=== PATIENT | female | born 1985 | race Caucasian/White ===

== ENCOUNTER → 2016-08-06 | Outpatient (CLI) | payer BC ==
--- NOTE | 2016-08-06 23:42 | PN ---
This 31-year-old female is coming in to discuss results of the sleep study. As mentioned earlier, the patient was diagnosed having obstructive sleep apnea which is moderate to severe with ( ) body position. Ideally would recommend CPAP therapy for this patient; however, she seems to be interested in weight loss and she has been aggressive in losing weight. She is currently down to 224 pounds. She was noted also to have significant tonsillar enlargement, and she is very interested in obtaining an ENT evaluation to see if she would be a good candidate for tonsillectomy, which would potentially improve her airway patency and decrease the severity of her obstructive sleep apnea. I think that is a reasonable option as long as the patient is not having any major symptoms regarding her obstructive sleep apnea. She is still snoring and she does have some degree of fatigue and sleepiness. Her [place] score is at 13 for now. HER CURRENT VITAL SIGNS: BP is 130/78, pulse 80, respiratory rate 16, temperature 98.4, saturation 97% on room air. Weight is 224. GENERAL APPEARANCE: Calm, comfortable. HEENT: Bilateral tonsillar enlargement. No goiter or neck masses. LUNGS: Clear to auscultation. HEART: Sounds are regular rate and rhythm. Normal S1, S2. No S3. No S4. No murmurs. ABDOMEN: Soft, nontender. No organomegaly. EXTREMITIES: No clubbing. No cyanosis or clubbing. IMPRESSION: 1. Obstructive sleep apnea, symptomatic, AHI of 24. 2. Bilateral tonsillar enlargement. 3. Obesity with a body mass index of 36, improving weight, as the patient has been aggressively losing weight. 4. Attention deficit disorder. 5. Chronic anxiety/depression. 6. Family history of obstructive sleep apnea. PLAN: 1. ENT evaluation regarding tonsillectomy. 2. Encourage weight loss. 3. CPAP therapy if the above-mentioned interventions fail. 4. The patient was referred to Dr. Stauffer in regards to possible tonsillectomy.
== END | disposition home or self-care (01) ==
LOC: SLEEP 14:13
PROVIDERS: ATTEND Internal Medicine Critical Care Medicine
DX: G47.33 Obstructive sleep apnea (adult) (pediatric) (principal); J35.1 Hypertrophy of tonsils; E66.9 Obesity, unspecified; Z68.36 Body mass index [BMI] 36.0-36.9, adult

== ENCOUNTER 2018-01-02 11:47 | Emergency (ER) | payer BC ==
--- NOTE | 2018-01-02 12:42 | ED ---
Abdominal Pain HPI - General Chief Complaint: Abdominal Pain Stated Complaint: Abd.pain Time Seen by Provider: 01/02/18 12:26 Source: patient, RN notes reviewed Mode of arrival: ambulatory Limitations: no limitations - History of Present Illness Initial Comments: This is a 32-year-old female with history of PCOS who presents to the emergency department with chief complaint of low abdominal pain. Patient states that she developed a pressure-like lower abdominal pain on Friday. She states that the right side of her abdomen is no longer painful but she continues to experience pain on the left side. Patient states that she is trying to get so does not take any control for management of her PCOS. She states that she has had ovarian cysts "pop" in the past and feels as if the pain is related to these cysts. Patient also reports bilateral low back pain. She states she has had kidney stones in the past but that this does not feel like a kidney stone. Patient states that she has irregular periods, her last being on November 09. She states she did take an at-home test which was negative. Patient has been one time in the past and did have a miscarriage. Patient reports nausea but denies vomiting, diarrhea or constipation. Denies fevers or chills, chest pain or shortness of breath. Denies vaginal bleeding or abnormal discharge. Patient denies any other past medical history and states she only takes Zoloft for anxiety and depression. - Related Data Allergies Allergy/AdvReac Type Severity Reaction Status Date / Time sulfamethoxazole Allergy Itching Verified 01/02/18 12:08 [From Bactrim] trimethoprim [From Bactrim] Allergy Itching Verified 01/02/18 12:08 Review of Systems ROS Statement: Those systems with pertinent positive or pertinent negative responses have been documented in the HPI. ROS Other: All systems not noted in ROS Statement are negative. Past Medical History Additional Past Medical History / Comment(s): pcos History of Any Multi-Drug Resistant Organisms: None Reported Past Surgical History: No Surgical Hx Reported Past Psychological History: Anxiety, Depression Smoking Status: Never smoker Past Alcohol Use History: Rare Past Drug Use History: None Reported General Exam - General Exam Comments Initial Comments: General: Awake and alert, well-developed; in no apparent distress. Patient is lying comfortably on ED stretcher. HEENT: Head atraumatic, normocephalic. Pupils are equal, round and reactive to light. Extraocular movements intact. Oropharynx moist without erythema or exudate. Neck: Supple. Normal ROM. Cardiovascular: Regular rate and rhythm. No murmurs, rubs or gallops. Chest symmetrical. Respiratory: Lungs clear to auscultation bilaterally. No wheezes, rales or rhonchi. Normal respiratory effort with no use of accessory muscles. Abdomen: Soft, non-distended. No rigidity, rebound, or guarding. There is tenderness on palpation of left lower pelvic region. With palpation of the left lower quadrant, patient complains of pain to the left pelvic region. No CVA tenderness bilaterally. Musculoskeletal: Normal ROM, no tenderness bilateral upper and lower extremities. Ambulating normally. Skin: [place], warm and dry without rashes or lesions. Neurological: Alert and oriented x3. CN II-XII grossly intact. Speech is fluent and answers are appropriate. No focal neuro deficits. Psychiatric: Normal mood and affect. No overt signs of depression or anxiety noted. Limitations: no limitations Course Vital Signs 01/02/18 01/02/18 01/02/18 12:05 12:20 14:08 Temperature 98.8 F 98.3 F Pulse Rate 94 82 Respiratory 18 18 16 Rate Blood Pressure 126/83 112/55 O2 Sat by Pulse 99 97 Oximetry Medical Decision Making - Medical Decision Making This is a 32-year-old female who presents to the emergency department with chief complaint of abdominal pain. Patient reports abdominal pain that started on Friday across the entire lower abdomen. Patient states that the right- sided abdominal pain has dissipated but that she continues to have pain in the left lower abdomen. On physical examination, patient is healthy appearing and in no acute distress. There is tenderness on palpation of left pelvic region. Patient does report a history of PCOS and states that she has had frequent ovarian cysts and that this feels very similar. Patient is managed by Dr. Ramos , [employer]. She is trying to get so does not take any control for management of PCOS. urine hCG is negative. CBC, CMP and UA were essentially unremarkable. Ultrasound of the pelvis revealed a thickened endometrium with small amount of fluid collection within the cervical canal radiologist believes this could relate to a pseudo-gestational sac of ectopic although no current ectopic was identified. A right ovarian cyst that is likely physiologic was also identified but could also be related to an early ectopic or a corpus luteal cyst. Recommended correlating with a serum beta hCG levels. Serum beta-hcg is <2.4 indicating no . Ultrasound also revealed a small amount of left paraovarian free fluid and a dominant follicle. This is likely what is causing patient's left lower quadrant pain, likely from a ruptured ovarian cyst. Patient's vital signs have been stable and she is in no acute distress. Recommended follow up with Dr. Ramos, patient's [employer] for repeat U/S in 5-7 days. Patient is agreement with plan and voices understanding. All questions answered. - Lab Data Result diagrams: 01/02/18 13:05 01/02/18 13:05 Lab Results 01/02/18 01/02/18 01/02/18 Range/Units 13:00 13:00 13:05 WBC (3.8-10.6) k/uL RBC (3.80-5.40) m/uL Hgb (11.4-16.0) gm/dL Hct (34.0-46.0) % MCV (80.0-100.0) fL MCH (25.0-35.0) pg MCHC (31.0-37.0) g/dL RDW (11.5-15.5) % Plt Count (150-450) k/uL Neutrophils % % Lymphocytes % % Monocytes % % Eosinophils % % Basophils % % Neutrophils # (1.3-7.7) k/uL Lymphocytes # (1.0-4.8) k/uL Monocytes # (0-1.0) k/uL Eosinophils # (0-0.7) k/uL Basophils # (0-0.2) k/uL Sodium 142 (137-145) mmol/L Potassium 4.4 (3.5-5.1) mmol/L Chloride 105 (98-107) mmol/L Carbon Dioxide 26 (22-30) mmol/L Anion Gap 11 mmol/L BUN 9 (7-17) mg/dL Creatinine 0.70 (0.52-1.04) mg/dL Est GFR (CKD-EPI)AfAm >90 (>60 ml/min/1.73 sqM) Est GFR (CKD-EPI)NonAf >90 (>60 ml/min/1.73 sqM) Glucose 93 (74-99) mg/dL Calcium 9.4 (8.4-10.2) mg/dL Total Bilirubin 0.7 (0.2-1.3) mg/dL AST 25 (14-36) U/L ALT 32 (9-52) U/L Alkaline Phosphatase 68 (38-126) U/L Total Protein 7.3 (6.3-8.2) g/dL Albumin 4.4 (3.5-5.0) g/dL Amylase 46 (30-110) U/L Lipase 95 (23-300) U/L HCG, Quant mIU/mL Urine Color Yellow Urine Appearance Cloudy H (Clear) Urine pH 5.5 (5.0-8.0) Ur Specific [place] 1.022 (1.001-1.035) Urine Protein Trace H (Negative) Urine Glucose (UA) Negative (Negative) Urine Ketones Negative (Negative) Urine Blood Negative (Negative) Urine Nitrite Negative (Negative) Urine Bilirubin Negative (Negative) Urine Urobilinogen <2.0 (<2.0) mg/dL Ur Leukocyte Esterase Trace H (Negative) Urine RBC 2 (0-5) /hpf Urine WBC 5 (0-5) /hpf Ur Squamous Epith Cells 5 H (0-4) /hpf Urine Bacteria Rare H (None) /hpf Urine Mucus Few H (None) /hpf Urine HCG, Qual Not Detected (Not Detectd) 01/02/18 01/02/18 Range/Units 13:05 13:05 WBC 10.9 H (3.8-10.6) k/uL RBC 5.52 H (3.80-5.40) m/uL Hgb 13.2 (11.4-16.0) gm/dL Hct 41.6 (34.0-46.0) % MCV 75.4 L (80.0-100.0) fL MCH 23.9 L (25.0-35.0) pg MCHC 31.7 (31.0-37.0) g/dL RDW 13.3 (11.5-15.5) % Plt Count 324 (150-450) k/uL Neutrophils % 73 % Lymphocytes % 18 % Monocytes % 7 % Eosinophils % 2 % Basophils % 0 % Neutrophils # 7.9 H (1.3-7.7) k/uL Lymphocytes # 1.9 (1.0-4.8) k/uL Monocytes # 0.8 (0-1.0) k/uL Eosinophils # 0.2 (0-0.7) k/uL Basophils # 0.0 (0-0.2) k/uL Sodium (137-145) mmol/L Potassium (3.5-5.1) mmol/L Chloride (98-107) mmol/L Carbon Dioxide (22-30) mmol/L Anion Gap mmol/L BUN (7-17) mg/dL Creatinine (0.52-1.04) mg/dL Est GFR (CKD-EPI)AfAm (>60 ml/min/1.73 sqM) Est GFR (CKD-EPI)NonAf (>60 ml/min/1.73 sqM) Glucose (74-99) mg/dL Calcium (8.4-10.2) mg/dL Total Bilirubin (0.2-1.3) mg/dL AST (14-36) U/L ALT (9-52) U/L Alkaline Phosphatase (38-126) U/L Total Protein (6.3-8.2) g/dL Albumin (3.5-5.0) g/dL Amylase (30-110) U/L Lipase (23-300) U/L HCG, Quant <2.4 mIU/mL Urine Color Urine Appearance (Clear) Urine pH (5.0-8.0) Ur Specific [place] (1.001-1.035) Urine Protein (Negative) Urine Glucose (UA) (Negative) Urine Ketones (Negative) Urine Blood (Negative) Urine Nitrite (Negative) Urine Bilirubin (Negative) Urine Urobilinogen (<2.0) mg/dL Ur Leukocyte Esterase (Negative) Urine RBC (0-5) /hpf Urine WBC (0-5) /hpf Ur Squamous Epith Cells (0-4) /hpf Urine Bacteria (None) /hpf Urine Mucus (None) /hpf Urine HCG, Qual (Not Detectd) - Radiology Data Radiology results: report reviewed transvaginal ultrasound impression: 1. Finding should be correlated with serum beta hCG level. There is a thickened endometrium with small intramural endometrial fluid collections and fluid within the cervical canal. Findings could relate to pseuodgestational sac of ectopic although no current ectopic sonographically identified, spontaneous , or less likely early intrauterine . 2. Small amount of left paraovarian free fluid and dominant follicle. 3. 2.3 similar right ovarian cyst that could be physiologic, related to early ectopic , represent a corpus luteal cyst. Again correlation with serum beta hCG levels recommended. Additionally short-term follow-up pelvic ultrasound in 5-7 days is recommended. Disposition Clinical Impression: Ovarian cyst Disposition: HOME SELF-CARE Condition: Good Instructions: Ovarian Cyst (ED), Ruptured Ovarian Cyst (ED) Additional Instructions: Please follow up with your [employer] within 1-2 days. Recommend repeat pelvic ultrasound in 5-7 days. Please return to the ED if you develop new or worsening symptoms. Is patient prescribed a controlled substance at d/c from ED?: No Referrals: Allan Wills MD [Primary Care Provider] - 1-2 days Time of Disposition: 15:14
[2018-01-02 13:22] LABS: Appearance,Urine Cloudy (Clear); Bacteria,Urine Rare /hpf; Bilirubin,Urine Negative (Negative); Blood,Urine Negative (Negative); Color,Urine Yellow; Glucose,Urine (UA) Negative (Negative); Ketones,Urine Negative (Negative); Leukocyte Esterase,Urine Trace (Negative); Mucus,Urine Few /hpf; Nitrite,Urine Negative (Negative); PH, Urine 5.5 (5.0-8.0); Protein,Urine Trace (Negative); RBC,Urine 2 /hpf (0-5); Specific Gravity,Urine 1.022 (1.001-1.035); Squamous Epithelial Cell,Urine 5 /hpf (0-4); Urobilinogen,Urine <2.0 mg/dL (<2.0); WBC,Urine 5 /hpf (0-5)
[2018-01-02 13:28] LABS: ALT 32 U/L (9-52); AST 25 U/L (14-36); Albumin 4.4 g/dL (3.5-5.0); Alkaline Phosphatase 68 U/L (38-126); Amylase 46 U/L (30-110); Anion Gap 11 mmol/L; Blood Urea Nitrogen 9 mg/dL (7-17); Calcium 9.4 mg/dL (8.4-10.2); Carbon Dioxide 26 mmol/L (22-30); Chloride 105 mmol/L (98-107); Glucose 93 mg/dL (74-99); Lipase 95 U/L (23-300); Potassium 4.4 mmol/L (3.5-5.1); Sodium 142 mmol/L (137-145); Total Bilirubin 0.7 mg/dL (0.2-1.3); Total Protein 7.3 g/dL (6.3-8.2)
[2018-01-02 13:30] LABS: Basophils % (A) 0 %; Eosinophils # (A) 0.2 k/uL (0-0.7); Eosinophils % (A) 2 %; HCT 41.6 % (34.0-46.0); HGB 13.2 gm/dL (11.4-16.0); Lymphocytes # (A) 1.9 k/uL (1.0-4.8); Lymphocytes % (A) 18 %; MCH 23.9 pg (25.0-35.0); MCHC 31.7 g/dL (31.0-37.0); MCV 75.4 fL (80.0-100.0); Mean Platelet Volume 7.2; Monocytes # (A) 0.8 k/uL (0-1.0); Monocytes % (A) 7 %; Neutrophils # (A) 7.9 k/uL (1.3-7.7); Neutrophils % (A) 73 %; Platelet Count 324 k/uL (150-450); RBC 5.52 m/uL (3.80-5.40); RDW 13.3 % (11.5-15.5); WBC 10.9 k/uL (3.8-10.6)
--- NOTE | 2018-01-02 14:07 | US ---
EXAMINATION TYPE: US transvaginal DATE OF EXAM: 01/02/2018 COMPARISON: NONE CLINICAL HISTORY: llq abdominal/pelvic pain. Pelvic pain and LLQ pain x 3 days; D/C Clomid beginning of October and was taking it x 3 months; ; patient stated has PCOS TECHNIQUE: Transvaginal (TV) per EC physician Date of LMP: 11/09/2017 EXAM MEASUREMENTS: Uterus: 9.3 x 5.6 x 3.9 cm Endometrial Stripe: 1.9 cm Right Ovary: 4.1 x 3.0 x 2.5 cm Left Ovary: 3.0 x 2.7 x 2.1 cm 1. Uterus: Anteverted; small amount of fluid in cervical canal = 1.8 x 0.7 x 0.1cm; Nabothian cysts in LULA = 1.8 x 0.7 x 0.1cm 2. Endometrium: abnormally thickened as >1.4cm and unable to correlate with 11/09/17 LMP; 2 cystic a djacent areas seen in upper endometrium with larger cyst = 0.4 x 0.5 x 0.3cm 3. Right Ovary: multifollicular with largest as thick walled cyst = 2.3 x 1.8 x 1.7cm 4. Left Ovary: multifollicular with largest simple follicular cyst = 1.6 x 1.1 x 1.3cm. Spectral, color and waveform Doppler imaging shows good arterial and venous flow within the ovaries ; there is no evidence for ovarian torsion. 5. Bilateral Adnexa: small free fluid noted adjacent to left ovary = 1.3 x 1.2 x 0.8cm 6. Posterior cul-de-sac: wnl IMPRESSION: 1. Findings should be correlated with serum beta-hCG level. There is a thickened endometrium with sma ll intramural endometrial fluid collections and fluid within the cervical canal. Findings could relat e to pseudogestational sac of ectopic although no current ectopic sonographically identified, spontaneous , or less likely early intrauterine . 2. Small amount of left paraovarian free fluid and dominant follicle. 3. 2.3 similar right ovarian cyst that could be physiologic, related to early ectopic , or r epresent a corpus luteal cyst. Again correlation with serum beta hCG levels recommended. Additionally short-term follow-up pelvic ultrasound in 5-7 days is recommended.
[2018-01-02 14:08] VITALS: RESP 16
[2018-01-02 16:10] VITALS: BP 121/82; PULSE 78; TEMP 98
== END 2018-01-02 16:05 | disposition home or self-care (01) ==
LOC: EC 11:47
DX: N83.201 Unspecified ovarian cyst, right side (principal); R93.8 Abnormal findings on diagnostic imaging of other specified body structures; N92.6 Irregular menstruation, unspecified; M54.5 Low back pain; R11.0 Nausea; F32.9 Major depressive disorder, single episode, unspecified; F41.9 Anxiety disorder, unspecified; Z79.899 Other long term (current) drug therapy; Z88.1 Allergy status to other antibiotic agents
CPT/HCPCS: 36415; 76830; 80053; 81001; 81025; 82150; 83690; 84702; 85025; 93975; 99284

== ENCOUNTER 2018-12-27 04:17 | Emergency (ER) | payer BC ==
[2018-12-27 04:28] VITALS: TEMP 97.9
[2018-12-27] MEDS ORDERED: ONDANSETRON 4 MG/2 ML VIAL IVP STA (04:48)
[2018-12-27] MEDS ORDERED: SODIUM CHLORIDE 0.9% 500 ML 500 ML IV STA (04:48)
[2018-12-27] MEDS ORDERED: MORPHINE SULFATE 4 MG/ML SYRINGE IV STA (04:48)
[2018-12-27] MEDS ORDERED: KETOROLAC 30 MG/ML 1 ML VIAL IVP STA (04:48)
[2018-12-27] MEDS ORDERED: SODIUM CHLORIDE 0.9% 1,000 ML IV STA ×2 (04:48)
--- NOTE | 2018-12-27 04:48 | ED ---
Abdominal Pain HPI - General Chief Complaint: Abdominal Pain Stated Complaint: Flank pain Time Seen by Provider: 12/27/18 04:19 Source: patient, family, RN notes reviewed, old records reviewed Mode of arrival: ambulatory Limitations: no limitations - History of Present Illness Initial Comments: This is a 31-year-old female the ER for evaluation. Patient presented for left- sided flank pain rating to back radiating to groin. Severe. Difficulty putting her urination. Patient states he has history of kidney stones history of arthritis feels different. No other injuries no trauma. No current fevers. Mild nausea no vomiting. No other medical history takes no medications denies drugs or alcohol MD Complaint: flank pain (Left-sided) -: days(s) (3) Location: suprapubic, L flank Radiation: LLQ, suprapubic Migration to: suprapubic Severity: moderate Severity scale (1-10): 7 Quality: aching, sharp Consistency: intermittent Improves With: nothing Worsens With: nothing Associated Symptoms: nausea - Related Data Previous Rx's Medication Instructions Recorded Naproxen [Naprosyn] 500 mg PO Q12HR PRN #30 tab 12/27/18 Ondansetron Odt [Zofran ODT] 4 mg PO Q8HR PRN #10 tab 12/27/18 Allergies Allergy/AdvReac Type Severity Reaction Status Date / Time sulfamethoxazole Allergy Itching Verified 12/27/18 04:28 [From Bactrim] trimethoprim [From Bactrim] Allergy Itching Verified 12/27/18 04:28 Review of Systems ROS Statement: Those systems with pertinent positive or pertinent negative responses have been documented in the HPI. ROS Other: All systems not noted in ROS Statement are negative. Past Medical History Additional Past Medical History / Comment(s): pcos, kidney stones History of Any Multi-Drug Resistant Organisms: None Reported Past Surgical History: Tonsillectomy Past Psychological History: Anxiety, Depression Smoking Status: Never smoker Past Alcohol Use History: Rare Past Drug Use History: None Reported General Exam Limitations: no limitations General appearance: alert, in no apparent distress Head exam: Present: atraumatic, normocephalic, normal inspection Eye exam: Present: normal appearance, PERRL, EOMI. Absent: scleral icterus, conjunctival injection, periorbital swelling ENT exam: Present: normal exam, mucous membranes moist Neck exam: Present: normal inspection. Absent: tenderness, meningismus, lym phadenopathy Respiratory exam: Present: normal lung sounds bilaterally. Absent: respiratory distress, wheezes, rales, rhonchi, stridor Cardiovascular Exam: Present: regular rate, normal rhythm, normal heart sounds. Absent: systolic murmur, diastolic murmur, rubs, gallop, clicks GI/Abdominal exam: Present: soft, normal bowel sounds, other (Left flank pain, no abdominal tenderness). Absent: distended, tenderness, guarding, rebound, rigid Extremities exam: Present: normal inspection, full ROM, normal capillary refill. Absent: tenderness, pedal edema, joint swelling, calf tenderness Back exam: Present: normal inspection Neurological exam: Present: alert, oriented X3, CN II-XII intact Psychiatric exam: Present: normal affect, normal mood Skin exam: Present: warm, dry, intact, normal color. Absent: rash Course Vital Signs 12/27/18 12/27/18 04:26 07:35 Temperature 97.9 F Pulse Rate 94 78 Respiratory 16 18 Rate Blood Pressure 130/87 156/99 O2 Sat by Pulse 98 98 Oximetry Medical Decision Making - Medical Decision Making 31 female the ER for evaluation. Patient has a left flank pain positive kidney stone noted. No infection labwork is normal patient can be discharged home - Lab Data Result diagrams: 12/27/18 05:05 12/27/18 05:05 Lab Results 12/27/18 12/27/18 12/27/18 Range/Units 05:05 05:05 05:05 WBC 10.6 (3.8-10.6) k/uL RBC 5.33 (3.80-5.40) m/uL Hgb 13.8 (11.4-16.0) gm/dL Hct 41.5 (34.0-46.0) % MCV 77.9 L (80.0-100.0) fL MCH 25.9 (25.0-35.0) pg MCHC 33.2 (31.0-37.0) g/dL RDW 15.7 H (11.5-15.5) % Plt Count 345 (150-450) k/uL Neutrophils % 74 % Lymphocytes % 18 % Monocytes % 6 % Eosinophils % 1 % Basophils % 0 % Neutrophils # 7.8 H (1.3-7.7) k/uL Lymphocytes # 1.9 (1.0-4.8) k/uL Monocytes # 0.6 (0-1.0) k/uL Eosinophils # 0.2 (0-0.7) k/uL Basophils # 0.0 (0-0.2) k/uL Sodium 140 (137-145) mmol/L Potassium 4.1 (3.5-5.1) mmol/L Chloride 105 (98-107) mmol/L Carbon Dioxide 22 (22-30) mmol/L Anion Gap 13 mmol/L BUN 14 (7-17) mg/dL Creatinine 1.06 H (0.52-1.04) mg/dL Est GFR (CKD-EPI)AfAm 81 (>60 ml/min/1.73 sqM) Est GFR (CKD-EPI)NonAf 70 (>60 ml/min/1.73 sqM) Glucose 112 H (74-99) mg/dL Lactic Ac Sepsis Rflx Plasma Lactic Acid [place] 2.6 H* (0.7-2.0) mmol/L Calcium 9.5 (8.4-10.2) mg/dL Total Bilirubin 0.4 (0.2-1.3) mg/dL AST 25 (14-36) U/L ALT 32 (9-52) U/L Alkaline Phosphatase 102 (38-126) U/L Creatine Kinase 81 (30-135) U/L Total Protein 7.0 (6.3-8.2) g/dL Albumin 4.2 (3.5-5.0) g/dL Amylase 70 (30-110) U/L Lipase 166 (23-300) U/L Urine Color Urine Appearance (Clear) Urine pH (5.0-8.0) Ur Specific [place] (1.001-1.035) Urine Protein (Negative) Urine Glucose (UA) (Negative) Urine Ketones (Negative) Urine Blood (Negative) Urine Nitrite (Negative) Urine Bilirubin (Negative) Urine Urobilinogen (<2.0) mg/dL Ur Leukocyte Esterase (Negative) Urine RBC (0-5) /hpf Urine WBC (0-5) /hpf Ur Squamous Epith Cells (0-4) /hpf Amorphous Sediment (None) /hpf Urine Bacteria (None) /hpf Urine Mucus (None) /hpf Urine HCG, Qual (Not Detectd) 12/27/18 12/27/18 12/27/18 Range/Units 05:40 05:40 06:32 WBC (3.8-10.6) k/uL RBC (3.80-5.40) m/uL Hgb (11.4-16.0) gm/dL Hct (34.0-46.0) % MCV (80.0-100.0) fL MCH (25.0-35.0) pg MCHC (31.0-37.0) g/dL RDW (11.5-15.5) % Plt Count (150-450) k/uL Neutrophils % % Lymphocytes % % Monocytes % % Eosinophils % % Basophils % % Neutrophils # (1.3-7.7) k/uL Lymphocytes # (1.0-4.8) k/uL Monocytes # (0-1.0) k/uL Eosinophils # (0-0.7) k/uL Basophils # (0-0.2) k/uL Sodium (137-145) mmol/L Potassium (3.5-5.1) mmol/L Chloride (98-107) mmol/L Carbon Dioxide (22-30) mmol/L Anion Gap mmol/L BUN (7-17) mg/dL Creatinine (0.52-1.04) mg/dL Est GFR (CKD-EPI)AfAm (>60 ml/min/1.73 sqM) Est GFR (CKD-EPI)NonAf (>60 ml/min/1.73 sqM) Glucose (74-99) mg/dL Lactic Ac Sepsis Rflx Y Plasma Lactic Acid [place] (0.7-2.0) mmol/L Calcium (8.4-10.2) mg/dL Total Bilirubin (0.2-1.3) mg/dL AST (14-36) U/L ALT (9-52) U/L Alkaline Phosphatase (38-126) U/L Creatine Kinase (30-135) U/L Total Protein (6.3-8.2) g/dL Albumin (3.5-5.0) g/dL Amylase (30-110) U/L Lipase (23-300) U/L Urine Color Yellow Urine Appearance Cloudy H (Clear) Urine pH 7.0 (5.0-8.0) Ur Specific [place] 1.016 (1.001-1.035) Urine Protein Trace H (Negative) Urine Glucose (UA) Negative (Negative) Urine Ketones Negative (Negative) Urine Blood Large H (Negative) Urine Nitrite Negative (Negative) Urine Bilirubin Negative (Negative) Urine Urobilinogen <2.0 (<2.0) mg/dL Ur Leukocyte Esterase Negative (Negative) Urine RBC >182 H (0-5) /hpf Urine WBC 5 (0-5) /hpf Ur Squamous Epith Cells 4 (0-4) /hpf Amorphous Sediment Moderate H (None) /hpf Urine Bacteria Rare H (None) /hpf Urine Mucus Rare H (None) /hpf Urine HCG, Qual Not Detected (Not Detectd) - Radiology Data Radiology results: report reviewed (CT pelvis is positive for left-sided kidney stone), image reviewed Disposition Clinical Impression: Kidney stone on left side Disposition: HOME SELF-CARE Condition: Good Instructions (If sedation given, give patient instructions): Kidney Stones (ED) Prescriptions: Naproxen [Naprosyn] 500 mg PO Q12HR PRN #30 tab PRN Reason: Pain Ondansetron Odt [Zofran ODT] 4 mg PO Q8HR PRN #10 tab PRN Reason: nausea/vomiting Is patient prescribed a controlled substance at d/c from ED?: No Referrals: Allan Wills MD [Primary Care Provider] - 1-2 days
[2018-12-27 05:43] LABS: Basophils % (A) 0 %; Eosinophils # (A) 0.2 k/uL (0-0.7); Eosinophils % (A) 1 %; HCT 41.5 % (34.0-46.0); HGB 13.8 gm/dL (11.4-16.0); Lymphocytes # (A) 1.9 k/uL (1.0-4.8); Lymphocytes % (A) 18 %; MCH 25.9 pg (25.0-35.0); MCHC 33.2 g/dL (31.0-37.0); MCV 77.9 fL (80.0-100.0); Mean Platelet Volume 7.2; Monocytes # (A) 0.6 k/uL (0-1.0); Monocytes % (A) 6 %; Neutrophils # (A) 7.8 k/uL (1.3-7.7); Neutrophils % (A) 74 %; Platelet Count 345 k/uL (150-450); RBC 5.33 m/uL (3.80-5.40); RDW 15.7 % (11.5-15.5); WBC 10.6 k/uL (3.8-10.6)
[2018-12-27 05:44] LABS: Albumin 4.2 g/dL (3.5-5.0); Calcium 9.5 mg/dL (8.4-10.2); Potassium 4.1 mmol/L (3.5-5.1); Total Bilirubin 0.4 mg/dL (0.2-1.3)
[2018-12-27 06:36] LABS: Amorphous Sediment,Urine Moderate /hpf; Appearance,Urine Cloudy (Clear); Bacteria,Urine Rare /hpf; Bilirubin,Urine Negative (Negative); Blood,Urine Large (Negative); Color,Urine Yellow; Glucose,Urine (UA) Negative (Negative); Ketones,Urine Negative (Negative); Leukocyte Esterase,Urine Negative (Negative); Mucus,Urine Rare /hpf; Nitrite,Urine Negative (Negative); Protein,Urine Trace (Negative); RBC,Urine >182 /hpf (0-5); Specific Gravity,Urine 1.016 (1.001-1.035); Squamous Epithelial Cell,Urine 4 /hpf (0-4); Urobilinogen,Urine <2.0 mg/dL (<2.0); WBC,Urine 5 /hpf (0-5)
[2018-12-27] MEDS ORDERED: ACET/COD 300 MG/30 MG STARTER PACK 6 TAB BTL PO STA (06:45)
--- NOTE | 2018-12-27 06:46 | CT ---
EXAM: CT Abdomen and Pelvis With Intravenous Contrast CLINICAL HISTORY: ITS.REASON CT Reason: abdominal pain TECHNIQUE: Axial computed tomography images of the abdomen and pelvis with intravenous contrast. CTDI is 37 mGy and DLP is 1787 mGy-cm. This CT exam was performed using one or more of the following dose reduction techniques: automated exposure control, adjustment of the mA and/or kV according to patient size, and/or use of iterative reconstruction technique. COMPARISON: No relevant prior studies available. FINDINGS: Lung bases: No mass. No consolidation. ABDOMEN: Liver: Enlarged with steatosis. Gallbladder and bile ducts: Unremarkable. Pancreas: Unremarkable. Spleen: Unremarkable. Adrenals: Unremarkable. Kidneys and ureters: Normal right kidney. Left hydroureteronephrosis secondary to a 3 mm stone in the mid ureter. Stomach and bowel: No bowel obstruction. No bowel wall thickening. PELVIS: Appendix: No appendicitis. Bladder: Unremarkable. Reproductive: Unremarkable. ABDOMEN and PELVIS: Intraperitoneal space: Unremarkable. Bones/joints: No acute fractures. Soft tissues: Unremarkable. Vasculature: No abdominal aortic aneurysm. Lymph nodes: No enlarged lymph nodes. IMPRESSION: Left hydroureteronephrosis secondary to a 3 mm stone in the mid ureter. Hepatomegaly with steatosis.
[2018-12-27 07:37] VITALS: BP 156/99; PULSE 78; RESP 18
== END 2018-12-27 07:35 | disposition home or self-care (01) ==
LOC: EC 04:17
DX: N20.0 Calculus of kidney (principal); Z88.2 Allergy status to sulfonamides; Z87.442 Personal history of urinary calculi
CPT/HCPCS: 99284; 96374; 96375 ×2; 96361; 36415; 80053; 82150; 82550; 83605; 83690; 85025; 81001; 81025; 87086; 74177; J2270; J2405; J1885; Q9967

== ENCOUNTER 2019-12-21 21:56 | Emergency (ER) | payer BC ==
[2019-12-21] MEDS ORDERED: SODIUM CHLORIDE 0.9% 1,000 ML IV STA (22:42)
[2019-12-21 23:08] LABS: Appearance,Urine Cloudy (Clear); Bacteria,Urine Many /hpf; Bilirubin,Urine Negative (Negative); Blood,Urine Large (Negative); Color,Urine Light Red; Glucose,Urine (UA) Negative (Negative); Ketones,Urine Trace (Negative); Leukocyte Esterase,Urine Moderate (Negative); Mucus,Urine Occasional /hpf; Nitrite,Urine Negative (Negative); PH, Urine 5.5 (5.0-8.0); Protein,Urine 1+ (Negative); RBC,Urine >182 /hpf (0-5); Squamous Epithelial Cell,Urine 3 /hpf (0-4); Urobilinogen,Urine <2.0 mg/dL (<2.0); WBC,Urine 16 /hpf (0-5)
[2019-12-21 23:28] LABS: Basophils % (A) 0 %; Eosinophils # (A) 0.3 k/uL (0-0.7); Eosinophils % (A) 3 %; HCT 41.7 % (34.0-46.0); HGB 14.1 gm/dL (11.4-16.0); Lymphocytes # (A) 3.3 k/uL (1.0-4.8); Lymphocytes % (A) 33 %; MCH 26.6 pg (25.0-35.0); MCHC 33.8 g/dL (31.0-37.0); MCV 78.7 fL (80.0-100.0); Mean Platelet Volume 6.6; Monocytes # (A) 0.5 k/uL (0-1.0); Monocytes % (A) 5 %; Neutrophils # (A) 5.9 k/uL (1.3-7.7); Neutrophils % (A) 59 %; Platelet Count 350 k/uL (150-450); RBC 5.29 m/uL (3.80-5.40); RDW 13.3 % (11.5-15.5); WBC 10.1 k/uL (3.8-10.6)
[2019-12-21 23:43] LABS: ALT 17 U/L (4-34); AST 21 U/L (14-36); African American GFR (CKD) >90 (>60 ml/min/1.73 sqM); Albumin 4.3 g/dL (3.5-5.0); Alkaline Phosphatase 70 U/L (38-126); Anion Gap 7 mmol/L; Blood Urea Nitrogen 10 mg/dL (7-17); Carbon Dioxide 24 mmol/L (22-30); Chloride 105 mmol/L (98-107); Glucose 96 mg/dL (74-99); Non-African American GFR(CKD) >90 (>60 ml/min/1.73 sqM); Sodium 136 mmol/L (137-145); Total Bilirubin 0.6 mg/dL (0.2-1.3); Total Protein 6.9 g/dL (6.3-8.2)
[2019-12-22] LABS: HCG,Quantitative Serum 3592.6 mIU/mL
--- NOTE | 2019-12-22 01:11 | US ---
EXAMINATION TYPE: Transabdominal DATE OF EXAM: 12/22/2019 12:58 AM COMPARISON: CT, US 2019 CLINICAL HISTORY: pain. Pain, bleeding. Hx PCOS. Hx miscarriage. A1. EXAM PERFORMED: Transvaginal (TV) and Transabdominal (TA) EXAM MEASUREMENTS: GESTATIONAL AGE / DATING Physician Established: Not yet established Dates by LMP: (10 weeks/0 days) EDC: 07/18/2020 Dates by First Scan: This is first scan Dates by Current Scan for: (7 weeks/2 days) EDC: 08/07/2020 Gestational sac and CRL seen within cervix area, no heart tones seen by ultrasound at this time. MATERNAL ANATOMY Uterus: 10.9 x 6.0 x 5.6 cm. Anteverted. Right Ovary: 4.0 x 2.1 x 2.3 cm. Measures enlarged. Left Ovary: 3.9 x 2.4 x 2.8 cm. Measures enlarged. Area of mixed echogenicity and peripheral vascular ity seen left ovary: 1.4 x 1.3 x 1.4 cm. Anechoic area seen measurin.3 x 1.6 x 1.5 cm. Post CDS / Adnexa: appear wnl Presence of free fluid: not seen Presence of corpus luteal cyst: Area of mixed echogenicity and peripheral vascularity seen left ovary as mentioned above: 1.4 x 1.3 x 1.4 cm. Presence of subchorionic bleed: no GESTATION / SURVEY Gestational sac appears to be positioned anteriorly in the cervix area. Seen transvaginally. CRL: 1.16 cm. (7 weeks/ 2 days) Yolk Sac (normal less than 6mm): not seen Heart Rate: unable to detect heart tones at this time IUP: Gestational sac and CRL seen within cervix area, no heart tones seen by ultrasound at this time . Date of LMP: 10/12/2019 Beta HcG (if available): 3,592.6 IMPRESSION: There is gestational sac and pole in the cervical canal with no heart beat and consistent with demise and incomplete .
[2019-12-22 01:18] VITALS: RESP 15
[2019-12-22] MEDS ORDERED: ACETAMINOPHEN TAB 500 MG TAB PO STA (01:26)
[2019-12-22] MEDS ORDERED: MORPHINE SULFATE 4 MG/ML SYRINGE IVP STA (01:30)
--- NOTE | 2019-12-22 02:10 | ED ---
General Adult HPI - General Chief complaint: Vaginal Bleeding Stated complaint: 10 Wks Preg,Poss Miscarriage Time Seen by Provider: 12/21/19 22:15 Source: patient, RN notes reviewed Mode of arrival: ambulatory Limitations: no limitations - History of Present Illness Initial comments: Patient is a 34-year-old female currently 9 weeks who presents to the emergency department for a chief complaint of vaginal bleeding. Patient believes she may be having a miscarriage. States that she started to have bleeding a few hours ago as well as pelvic cramping. Patient reports that she had a miscarriage previously which presented in a similar fashion. This was several years ago. Patient has not yet seen her [employer] DESIGNER for this.Patient has no other complaints at this time including shortness of breath, chest pain, abdominal pain, nausea or vomiting, headache, or visual changes. - Related Data Previous Rx's Medication Instructions Recorded Naproxen [Naprosyn] 500 mg PO Q12HR PRN #30 tab 12/27/18 Ondansetron Odt [Zofran ODT] 4 mg PO Q8HR PRN #10 tab 12/27/18 Allergies Allergy/AdvReac Type Severity Reaction Status Date / Time sulfamethoxazole Allergy Itching Verified 12/21/19 22:14 [From Bactrim] trimethoprim [From Bactrim] Allergy Itching Verified 12/21/19 22:14 Review of Systems ROS Statement: Those systems with pertinent positive or pertinent negative responses have been documented in the HPI. ROS Other: All systems not noted in ROS Statement are negative. Past Medical History Additional Past Medical History / Comment(s): pcos, kidney stones, miscarriage 2013 History of Any Multi-Drug Resistant Organisms: None Reported Past Surgical History: Tonsillectomy Past Psychological History: Anxiety, Depression Past Alcohol Use History: Occasional Past Drug Use History: None Reported General Exam Limitations: no limitations General appearance: alert, in no apparent distress Head exam: Present: atraumatic, normocephalic, normal inspection Eye exam: Present: normal appearance, PERRL, EOMI. Absent: scleral icterus, conjunctival injection, periorbital swelling ENT exam: Present: normal exam, mucous membranes moist Neck exam: Present: normal inspection, full ROM. Absent: tenderness, meningismus, lymphadenopathy Respiratory exam: Present: normal lung sounds bilaterally. Absent: respiratory distress, wheezes, rales, rhonchi, stridor Cardiovascular Exam: Present: regular rate, normal rhythm, normal heart sounds. Absent: systolic murmur, diastolic murmur, rubs, gallop, clicks GI/Abdominal exam: Present: soft, normal bowel sounds. Absent: distended, tend erness, guarding, rebound, rigid External exam: Present: normal external exam. Absent: erythema, swelling, lesions, lacerations, ecchymosis Speculum exam: Present: vaginal bleeding, tissue. Absent: normal speculum exam, erythema, vaginal discharge, cervical discharge, foreign body, laceration Course Vital Signs 12/21/19 12/21/19 12/22/19 22:07 23:26 01:17 Temperature 98.8 F Pulse Rate 91 79 Respiratory 15 16 15 Rate Blood Pressure 123/82 131/79 Medical Decision Making - Medical Decision Making Vitals are stable. CBC CMP unremarkable. Urinalysis shows 182 red blood cells with 16 white blood cells. Patient is B+, does not require RhoGAM. HCG Quant is 35,000. We do not have a previous hCG to compare this to. Ultrasound shows a gestational sac and CRL seen within cervical area. No heart tones seen by ultrasound at this time. Consistent with demise and incomplete . Pelvic exam was performed and I did remove some tissue that was in the vaginal canal. I do not see any tissue within the cervix at this time. Patient was discharged home to follow up with OB. I did discuss close follow-up and she will call tomorrow. She will return here for any worsening symptoms. - Lab Data Result diagrams: 12/21/19 23:10 12/21/19 23:10 Lab Results 12/21/19 12/21/19 12/21/19 Range/Units 22:56 23:10 23:10 WBC 10.1 (3.8-10.6) k/uL RBC 5.29 (3.80-5.40) m/uL Hgb 14.1 (11.4-16.0) gm/dL Hct 41.7 (34.0-46.0) % MCV 78.7 L (80.0-100.0) fL MCH 26.6 (25.0-35.0) pg MCHC 33.8 (31.0-37.0) g/dL RDW 13.3 (11.5-15.5) % Plt Count 350 (150-450) k/uL Neutrophils % 59 % Lymphocytes % 33 % Monocytes % 5 % Eosinophils % 3 % Basophils % 0 % Neutrophils # 5.9 (1.3-7.7) k/uL Lymphocytes # 3.3 (1.0-4.8) k/uL Monocytes # 0.5 (0-1.0) k/uL Eosinophils # 0.3 (0-0.7) k/uL Basophils # 0.0 (0-0.2) k/uL Sodium 136 L (137-145) mmol/L Potassium 4.0 (3.5-5.1) mmol/L Chloride 105 (98-107) mmol/L Carbon Dioxide 24 (22-30) mmol/L Anion Gap 7 mmol/L BUN 10 (7-17) mg/dL Creatinine 0.67 (0.52-1.04) mg/dL Est GFR (CKD-EPI)AfAm >90 (>60 ml/min/1.73 sqM) Est GFR (CKD-EPI)NonAf >90 (>60 ml/min/1.73 sqM) Glucose 96 (74-99) mg/dL Calcium 9.0 (8.4-10.2) mg/dL Total Bilirubin 0.6 (0.2-1.3) mg/dL AST 21 (14-36) U/L ALT 17 (4-34) U/L Alkaline Phosphatase 70 (38-126) U/L Total Protein 6.9 (6.3-8.2) g/dL Albumin 4.3 (3.5-5.0) g/dL HCG, Quant 3592.6 mIU/mL Urine Color Light Red Urine Appearance Cloudy H (Clear) Urine pH 5.5 (5.0-8.0) Ur Specific [place] 1.020 (1.001-1.035) Urine Protein 1+ H (Negative) Urine Glucose (UA) Negative (Negative) Urine Ketones Trace H (Negative) Urine Blood Large H (Negative) Urine Nitrite Negative (Negative) Urine Bilirubin Negative (Negative) Urine Urobilinogen <2.0 (<2.0) mg/dL Ur Leukocyte Esterase Moderate H (Negative) Urine RBC >182 H (0-5) /hpf Urine WBC 16 H (0-5) /hpf Ur Squamous Epith Cells 3 (0-4) /hpf Urine Bacteria Many H (None) /hpf Urine Mucus Occasional H (None) /hpf Blood Type Blood Type Recheck Bld Type Recheck Status 12/21/19 Range/Units 23:10 WBC (3.8-10.6) k/uL RBC (3.80-5.40) m/uL Hgb (11.4-16.0) gm/dL Hct (34.0-46.0) % MCV (80.0-100.0) fL MCH (25.0-35.0) pg MCHC (31.0-37.0) g/dL RDW (11.5-15.5) % Plt Count (150-450) k/uL Neutrophils % % Lymphocytes % % Monocytes % % Eosinophils % % Basophils % % Neutrophils # (1.3-7.7) k/uL Lymphocytes # (1.0-4.8) k/uL Monocytes # (0-1.0) k/uL Eosinophils # (0-0.7) k/uL Basophils # (0-0.2) k/uL Sodium (137-145) mmol/L Potassium (3.5-5.1) mmol/L Chloride (98-107) mmol/L Carbon Dioxide (22-30) mmol/L Anion Gap mmol/L BUN (7-17) mg/dL Creatinine (0.52-1.04) mg/dL Est GFR (CKD-EPI)AfAm (>60 ml/min/1.73 sqM) Est GFR (CKD-EPI)NonAf (>60 ml/min/1.73 sqM) Glucose (74-99) mg/dL Calcium (8.4-10.2) mg/dL Total Bilirubin (0.2-1.3) mg/dL AST (14-36) U/L ALT (4-34) U/L Alkaline Phosphatase (38-126) U/L Total Protein (6.3-8.2) g/dL Albumin (3.5-5.0) g/dL HCG, Quant mIU/mL Urine Color Urine Appearance (Clear) Urine pH (5.0-8.0) Ur Specific [place] (1.001-1.035) Urine Protein (Negative) Urine Glucose (UA) (Negative) Urine Ketones (Negative) Urine Blood (Negative) Urine Nitrite (Negative) Urine Bilirubin (Negative) Urine Urobilinogen (<2.0) mg/dL Ur Leukocyte Esterase (Negative) Urine RBC (0-5) /hpf Urine WBC (0-5) /hpf Ur Squamous Epith Cells (0-4) /hpf Urine Bacteria (None) /hpf Urine Mucus (None) /hpf Blood Type B Positive Blood Type Recheck No Previous Record Bld Type Recheck Status CABO Indicated Disposition Clinical Impression: Incomplete miscarriage Disposition: HOME SELF-CARE Condition: Good Instructions (If sedation given, give patient instructions): Miscarriage (ED) Additional Instructions: Please follow up with [employer] clinic tomorrow. If you've any worsening symptoms such as worsening bleeding, significant pain, lightheadedness, or any other concerning symptoms return to the emergency room. Is patient prescribed a controlled substance at d/c from ED?: No Referrals: Allan Wills MD [Primary Care Provider] - 1-2 days Ambar Falk MD [REFERRING] - 1-2 days Time of Disposition: 02:08
[2019-12-22] MEDS ORDERED: ACET/COD 300 MG/30 MG STARTER PACK 6 TAB BTL PO STA (02:22)
[2019-12-22 02:31] VITALS: BP 136/69; PULSE 92; TEMP 98.9
== END 2019-12-22 02:22 | disposition home or self-care (01) ==
LOC: EC 21:56
DX: O03.4 Incomplete spontaneous abortion without complication (principal); Z3A.09 9 weeks gestation of pregnancy; Z88.1 Allergy status to other antibiotic agents; Z88.2 Allergy status to sulfonamides
CPT/HCPCS: 36415; 76801; 76817; 80053; 81001; 84702; 85025; 86900; 86901; 87086; 96361; 96374; 99284

== ENCOUNTER 2020-10-08 17:06 | Outpatient (CLI) | payer BC ==
[2020-10-08 18:23] LABS: Appearance,Urine Clear (Clear); Bilirubin,Urine Negative (Negative); Blood,Urine Negative (Negative); Color,Urine Yellow; Glucose,Urine (UA) Negative (Negative); Ketones,Urine 3+ (Negative); Leukocyte Esterase,Urine Negative (Negative); Nitrite,Urine Negative (Negative); Protein,Urine Trace (Negative); Specific Gravity,Urine 1.026 (1.001-1.035); Urobilinogen,Urine <2.0 mg/dL (<2.0)
[2020-10-08 18:51] VITALS: BP 121/63; PULSE 76; RESP 18; TEMP 98.4
--- NOTE | 2020-10-24 08:13 | P.MSEPDOC ---
Presenting Problems - Arrival Data Date of Arrival on Unit: 10/08/20 Time of Arrival on Unit: 17:07 Mode of Transport: Ambulatory - Complaint OB-Reason for Admission/Chief Complaint: Other Comment: pt DOM see Dr Parrish at [facility] pt arrived c/o lower abd discomfort on left side that radiates to the top of belly. pt denies any cramping or bleeding pt states she did try to give her dog a bath and lifted his front legs up into the tub and then she noticed the discomfort after that Medical History - Information : 3 Para: 0 Term: 0 : 0 Abortions: Spontaneous or Elective: 2 Number of Living Children: 0 - Gestational Age Gestational Age by CARMELITA (wks/days): 22 Weeks and 6 Days - History Complications: No Care Comment: pt has not had any care at this facility Review of Systems - Review of Systems Constitutional: No problems Breast: No problems ENT: No problems Cardiovascular: No problems Respiratory: No problems Gastrointestinal: No problems Genitourinary: No problems Musculoskeletal: No problems Neurological: No problems Skin: No problems Vital Signs - Temperature Temperature: 98.4 F Temperature Source: Oral - Pulse Right Brachial Pulse Rate: 76 Pulse Assessment Method: Automatic Cuff - Respirations Respiratory Rate: 18 Oxygen Delivery Method: Room Air - Blood Pressure Right Arm Blood Pressure: 121/63 Blood Pressure Mean: 82 Blood Pressure Source: Automatic Cuff Medical Screen Scoring (Pre) - Cervical Exam Dilation: 0 cm = 0 Membranes: Intact - Uterine Contractions Frequency: N/A Duration: N/A Intensity: N/A - Maternal Vital Signs Maternal Temperature: N/A Maternal Blood Pressure: N/A Signs of Preeclampsia: N/A Maternal Respirations: N/A - Maternal Trauma Maternal Trauma: N/A - Assessment - Baby A Baseline FHR: 140 Position: N/A Station: N/A - Total Score - Baby A Total Score - Baby A: 0 - Total Score - Baby B Total Score - Baby B: 0 - Total Score - Baby C Total Score - Baby C: 0 - Level of Risk - Baby A Level of Risk - Baby A: Low (0-5) - Level of Risk - Baby B Level of Risk - Baby B: Low (0-5) - Level of Risk - Baby C Level of Risk - Baby C: Low (0-5) Physician Notification (Pre) - Physician Notified Physician Notified Date: 10/08/20 Physician Notified Time: 18:16 New Order Received: Yes - Notification Comment Comment: clean catch u/a results collected wait for u/a results and then may discharge pt to home. pt discharged to home undelivered with instructions Disposition - Disposition OB Disposition: Discharge to home Discharge Date: 10/08/20 Discharge Time: 18:40 I agree with the RN Medical Screening Exam: Yes Case reviewed; plan agreed upon as documented in EMR&OBIX.: Yes Diagnosis: PERIUMBILICAL PAIN
== END 2020-10-08 18:40 | disposition home or self-care (01) ==
LOC: FBPOP 17:06
PROVIDERS: ATTEND Obstetrics & Gynecology
DX: O26.892 Other specified pregnancy related conditions, second trimester (principal); R10.33 Periumbilical pain; Z3A.22 22 weeks gestation of pregnancy; Z88.2 Allergy status to sulfonamides; Z88.1 Allergy status to other antibiotic agents
CPT/HCPCS: 81003; 99213

== ENCOUNTER 2020-12-30 13:43 | Outpatient (CLI) | payer BC ==
[2020-12-30 14:58] VITALS: BP 121/66; PULSE 66; RESP 18; TEMP 97.2
--- NOTE | 2020-12-31 08:12 | P.MSEPDOC ---
Presenting Problems - Arrival Data Date of Arrival on Unit: 12/30/20 Time of Arrival on Unit: 13:43 Mode of Transport: Ambulatory - Complaint OB-Reason for Admission/Chief Complaint: Rule Out PROM Comment: pt presents to triage for leaking fluid at around 0945 this am, nothing since that time Medical History - Information : 3 Para: 0 Term: 0 : 0 Abortions: Spontaneous or Elective: 2 Number of Living Children: 0 - Gestational Age Gestational Age by CARMELITA (wks/days): 34 Weeks and 5 Days Review of Systems - Review of Systems Constitutional: No problems Breast: No problems ENT: No problems Cardiovascular: No problems Respiratory: No problems Gastrointestinal: No problems Genitourinary: No problems Musculoskeletal: No problems Neurological: No problems Skin: No problems Vital Signs - Temperature Temperature: 97.2 F Temperature Source: Temporal Artery Scan - Pulse Right Brachial Pulse Rate: 66 Pulse Assessment Method: Automatic Cuff - Respirations Respiratory Rate: 18 Oxygen Delivery Method: Room Air - Blood Pressure Right Arm Blood Pressure: 121/66 Blood Pressure Mean: 84 Blood Pressure Source: Automatic Cuff Medical Screen Scoring - Cervical Exam Dilation (cm): 1 Effacement (%): 50 Station: -3 Membranes: Intact - Uterine Contractions Intensity: Mild Resting: Soft to palpation - Assessment - Baby A Baseline FHR: 130 Heart Rate - NICHD Category: Category I (Normal) NST: Reactive Physician Notification - Physician Notified Physician Notified Date: 12/30/20 Physician Notified Time: 14:38 New Order Received: Yes - Notification Comment Comment: amniosure negative, reactive nst, 2 contractions while in triage, cervical exam 1/thick/high, orders to discharge pt home and follow up with Dr. Rodriguez on Friday Maternal Triage Index - Maternal Triage Index Presenting for scheduled procedure w/no complaint: No - Stat/Priority 1 Stat Priority 1: No - Urgent/Priority 2 Urgent Priority 2: Yes Provider Notified: Robin Finch Provider Notified Time: 14:38 Criteria Met for Priority 2: pt is 34 5/7 and had some leaking fluid Disposition - Disposition OB Disposition: Triage, Discharge to home, Written follow up instructions reviewed Discharge Date: 12/30/20 Discharge Time: 14:50 I agree with the RN Medical Screening Exam: Yes Case reviewed; plan agreed upon as documented in EMR&OBIX.: Yes Diagnosis: FALSE LABOR BEFORE 37 COMPLETED WEEKS OF GEST, THIRD TRI (No evidence of premature rupture membranes. heart tones are category 1. Patient's felt be stable for discharge home follow up with her primary physician on Friday morning.)
== END 2020-12-30 14:50 | disposition home or self-care (01) ==
LOC: FBPOP 13:43
PROVIDERS: ATTEND Obstetrics & Gynecology
DX: O47.03 False labor before 37 completed weeks of gestation, third trimester (principal); Z3A.34 34 weeks gestation of pregnancy; Z88.1 Allergy status to other antibiotic agents; Z88.2 Allergy status to sulfonamides
CPT/HCPCS: 59025; 84112; 99213

== ENCOUNTER 2021-04-25 04:53 | Emergency (ER) | payer BC ==
[2021-04-25 05:01] VITALS: TEMP 98.1
--- NOTE | 2021-04-25 06:08 | ED ---
Abdominal Pain HPI - General Source: patient Mode of arrival: ambulatory Limitations: no limitations <Ambar Wallace - Last Filed: 04/25/21 06:09> <Luca Preciado - Last Filed: 04/25/21 08:22> - General Chief Complaint: Abdominal Pain Stated Complaint: Abd Pain Time Seen by Provider: 04/25/21 05:16 - History of Present Illness Initial Comments: Patient is a 36-year-old female who presents to the emergency department today for evaluation of 2 months of abdominal pain bilateral lower abdomen left greater than right. Patient gave on January 31 via . She reports pain began approximately 3 weeks . Patient is followed with her corporate travel manager about this and was told that her incision was healing well and her uterus was normal size they did not believe it was OB in nature. Patient denies any associated fevers chills nausea vomiting or change in bowel or bladder habits. She's had no hematuria or dysuria. She has a history kidney stones but reports this pain is not similar to previous kidney stones. (Ambar Wallace) - Related Data Home Medications Medication Instructions Recorded Confirmed Tio-Fkpm-Yuctq Acid 1 tab PO DAILY 10/08/20 12/30/20 [-U Capsule (formulary)] Cholecalciferol (Vitamin D3) 75 mcg PO DAILY 12/30/20 12/30/20 [Vitamin D3 (3000 Iu)] Iron 18 mg PO DAILY 12/30/20 12/30/20 Previous Rx's Medication Instructions Recorded Amoxic-Pot Clav 875-125Mg 1 tab PO BID 14 Days #28 tab 04/25/21 [Augmentin 875-125] Allergies Allergy/AdvReac Type Severity Reaction Status Date / Time sulfamethoxazole Allergy Itching Verified 04/25/21 05:01 [From Bactrim] trimethoprim [From Bactrim] Allergy Itching Verified 04/25/21 05:01 ciprofloxacin [From Cipro] AdvReac Rapid Verified 04/25/21 05:01 Heart Rate Review of Systems ROS Other: All systems not noted in ROS Statement are negative. <Ambar Wallace - Last Filed: 04/25/21 06:09> ROS Other: All systems not noted in ROS Statement are negative. <Luca Preciado - Last Filed: 04/25/21 08:22> ROS Statement: Those systems with pertinent positive or pertinent negative responses have been documented in the HPI. Past Medical History Additional Past Medical History / Comment(s): pcos, kidney stones, miscarriage 2014 History of Any Multi-Drug Resistant Organisms: None Reported Past Surgical History: Tonsillectomy Past Psychological History: Anxiety, Depression Smoking Status: Never smoker Past Alcohol Use History: None Reported Past Drug Use History: None Reported <Ambar Wallace - Last Filed: 04/25/21 06:09> General Exam Limitations: no limitations <Ambar Wallace - Last Filed: 04/25/21 06:09> - General Exam Comments Initial Comments: Physical Exam GENERAL: Patient is well-developed and well-nourished. Patient is nontoxic and well- hydrated Appears uncomfortable HENT: Normocephalic, Atraumatic. EYES: PERRL, EOMI PULMONARY: Unlabored respirations. No audible rales rhonchi or wheezing was noted. CARDIOVASCULAR: There is a regular rate and rhythm without any murmurs gallops or rubs. ABDOMEN: Soft with normal bowel sounds. Diffuse abdominal tenderness SKIN: Well healed lower abdominal incision Small healing abscess left side of mons : Deferred NEUROLOGIC: Patient is alert and oriented x3. Moving all extremities spontaneously MUSCULOSKELETAL: Normal extremities with adequate strength and full range of motion. No lower extremity swelling or edema. No calf tenderness. PSYCHIATRIC: Normal psychiatric evaluation. (Ambar Wallace) Course Vital Signs 04/25/21 04/25/21 04:59 06:16 Temperature 98.1 F Pulse Rate 69 72 Respiratory 18 16 Rate Blood Pressure 124/83 130/82 O2 Sat by Pulse 97 98 Oximetry Medical Decision Making - Lab Data Result diagrams: 04/25/21 06:01 04/25/21 06:01 <Luca Preciado - Last Filed: 04/25/21 08:22> - Medical Decision Making 36 -year-old female presenting with abdominal pain over the past month. She was seen by previous physician and signed out at shift change awaiting CT and reevaluation. CT does show multiple findings including hepatosplenomegaly, nonobstructing gallstone, and in acute diverticulitis. I suspect the majority of her pain is coming from her acute diverticulitis. We did discuss dietary modifications and oral antibiotics. I encouraged the patient to monitor symptoms closely and return with any worsening or changing symptoms. She has an appointment with new primary care physician Dr[facility] - Lab Data Lab Results 04/25/21 04/25/21 04/25/21 Range/Units 06:01 06:01 06:01 WBC 12.3 H (3.8-10.6) k/uL RBC 5.52 H (3.80-5.40) m/uL Hgb 13.6 (11.4-16.0) gm/dL Hct 41.0 (34.0-46.0) % MCV 74.3 L (80.0-100.0) fL MCH 24.6 L (25.0-35.0) pg MCHC 33.1 (31.0-37.0) g/dL RDW 15.0 (11.5-15.5) % Plt Count 382 (150-450) k/uL MPV 6.9 Neutrophils % 72 % Lymphocytes % 21 % Monocytes % 5 % Eosinophils % 1 % Basophils % 0 % Neutrophils # 8.8 H (1.3-7.7) k/uL Lymphocytes # 2.5 (1.0-4.8) k/uL Monocytes # 0.6 (0-1.0) k/uL Eosinophils # 0.1 (0-0.7) k/uL Basophils # 0.0 (0-0.2) k/uL Microcytosis Slight Sodium (137-145) mmol/L Potassium (3.5-5.1) mmol/L Chloride (98-107) mmol/L Carbon Dioxide (22-30) mmol/L Anion Gap mmol/L BUN (7-17) mg/dL Creatinine (0.52-1.04) mg/dL Est GFR (CKD-EPI)AfAm (>60 ml/min/1.73 sqM) Est GFR (CKD-EPI)NonAf (>60 ml/min/1.73 sqM) Glucose (74-99) mg/dL Calcium (8.4-10.2) mg/dL Total Bilirubin (0.2-1.3) mg/dL AST (14-36) U/L ALT (4-34) U/L Alkaline Phosphatase (38-126) U/L Total Protein (6.3-8.2) g/dL Albumin (3.5-5.0) g/dL Lipase (23-300) U/L Urine Color Yellow Urine Appearance Clear (Clear) Urine pH 5.5 (5.0-8.0) Ur Specific [place] 1.027 (1.001-1.035) Urine Protein Negative (Negative) Urine Glucose (UA) Negative (Negative) Urine Ketones Negative (Negative) Urine Blood Negative (Negative) Urine Nitrite Negative (Negative) Urine Bilirubin Negative (Negative) Urine Urobilinogen <2.0 (<2.0) mg/dL Ur Leukocyte Esterase Moderate H (Negative) Urine RBC 1 (0-5) /hpf Urine WBC 12 H (0-5) /hpf Ur Squamous Epith Cells 5 H (0-4) /hpf Urine Bacteria Rare H (None) /hpf Urine Mucus Rare H (None) /hpf Urine HCG, Qual Not Detected (Not Detectd) 04/25/21 Range/Units 06:01 WBC (3.8-10.6) k/uL RBC (3.80-5.40) m/uL Hgb (11.4-16.0) gm/dL Hct (34.0-46.0) % MCV (80.0-100.0) fL MCH (25.0-35.0) pg MCHC (31.0-37.0) g/dL RDW (11.5-15.5) % Plt Count (150-450) k/uL MPV Neutrophils % % Lymphocytes % % Monocytes % % Eosinophils % % Basophils % % Neutrophils # (1.3-7.7) k/uL Lymphocytes # (1.0-4.8) k/uL Monocytes # (0-1.0) k/uL Eosinophils # (0-0.7) k/uL Basophils # (0-0.2) k/uL Microcytosis Sodium 139 (137-145) mmol/L Potassium 4.5 (3.5-5.1) mmol/L Chloride 107 (98-107) mmol/L Carbon Dioxide 23 (22-30) mmol/L Anion Gap 9 mmol/L BUN 15 (7-17) mg/dL Creatinine 0.71 (0.52-1.04) mg/dL Est GFR (CKD-EPI)AfAm >90 (>60 ml/min/1.73 sqM) Est GFR (CKD-EPI)NonAf >90 (>60 ml/min/1.73 sqM) Glucose 100 H (74-99) mg/dL Calcium 9.3 (8.4-10.2) mg/dL Total Bilirubin 0.7 (0.2-1.3) mg/dL AST 27 (14-36) U/L ALT 22 (4-34) U/L Alkaline Phosphatase 86 (38-126) U/L Total Protein 7.3 (6.3-8.2) g/dL Albumin 4.3 (3.5-5.0) g/dL Lipase 93 (23-300) U/L Urine Color Urine Appearance (Clear) Urine pH (5.0-8.0) Ur Specific [place] (1.001-1.035) Urine Protein (Negative) Urine Glucose (UA) (Negative) Urine Ketones (Negative) Urine Blood (Negative) Urine Nitrite (Negative) Urine Bilirubin (Negative) Urine Urobilinogen (<2.0) mg/dL Ur Leukocyte Esterase (Negative) Urine RBC (0-5) /hpf Urine WBC (0-5) /hpf Ur Squamous Epith Cells (0-4) /hpf Urine Bacteria (None) /hpf Urine Mucus (None) /hpf Urine HCG, Qual (Not Detectd) Disposition <Ambar Wallace P - Last Filed: 04/25/21 06:09> Is patient prescribed a controlled substance at d/c from ED?: No Time of Disposition: 08:21 <Luca Preciado - Last Filed: 04/25/21 08:22> Clinical Impression: Abdominal pain, Diverticulitis Disposition: HOME SELF-CARE Condition: Fair Instructions (If sedation given, give patient instructions): Abdominal Pain (ED), Diverticulitis (ED) Prescriptions: Amoxic-Pot Clav 875-125Mg [Augmentin 875-125] 1 tab PO BID 14 Days #28 tab Referrals: None,Stated [Primary Care Provider] - 1-2 days Wes Wills MD [STAFF PHYSICIAN] - 1-2 days
[2021-04-25 06:17] VITALS: RESP 16
[2021-04-25 06:25] LABS: Basophils % (A) 0 %; Eosinophils # (A) 0.1 k/uL (0-0.7); Eosinophils % (A) 1 %; HGB 13.6 gm/dL (11.4-16.0); Lymphocytes # (A) 2.5 k/uL (1.0-4.8); Lymphocytes % (A) 21 %; MCH 24.6 pg (25.0-35.0); MCHC 33.1 g/dL (31.0-37.0); MCV 74.3 fL (80.0-100.0); Mean Platelet Volume 6.9; Microcytosis Slight; Monocytes # (A) 0.6 k/uL (0-1.0); Monocytes % (A) 5 %; Neutrophils # (A) 8.8 k/uL (1.3-7.7); Neutrophils % (A) 72 %; Platelet Count 382 k/uL (150-450); RBC 5.52 m/uL (3.80-5.40); WBC 12.3 k/uL (3.8-10.6)
[2021-04-25 06:39] LABS: ALT 22 U/L (4-34); AST 27 U/L (14-36); African American GFR (CKD) >90 (>60 ml/min/1.73 sqM); Albumin 4.3 g/dL (3.5-5.0); Alkaline Phosphatase 86 U/L (38-126); Anion Gap 9 mmol/L; Blood Urea Nitrogen 15 mg/dL (7-17); Calcium 9.3 mg/dL (8.4-10.2); Carbon Dioxide 23 mmol/L (22-30); Chloride 107 mmol/L (98-107); Glucose 100 mg/dL (74-99); Lipase 93 U/L (23-300); Non-African American GFR(CKD) >90 (>60 ml/min/1.73 sqM); Potassium 4.5 mmol/L (3.5-5.1); Sodium 139 mmol/L (137-145); Total Bilirubin 0.7 mg/dL (0.2-1.3); Total Protein 7.3 g/dL (6.3-8.2)
[2021-04-25 07:18] LABS: Appearance,Urine Clear (Clear); Bacteria,Urine Rare /hpf; Bilirubin,Urine Negative (Negative); Blood,Urine Negative (Negative); Color,Urine Yellow; Glucose,Urine (UA) Negative (Negative); Ketones,Urine Negative (Negative); Leukocyte Esterase,Urine Moderate (Negative); Mucus,Urine Rare /hpf; Nitrite,Urine Negative (Negative); PH, Urine 5.5 (5.0-8.0); Protein,Urine Negative (Negative); RBC,Urine 1 /hpf (0-5); Specific Gravity,Urine 1.027 (1.001-1.035); Squamous Epithelial Cell,Urine 5 /hpf (0-4); Urobilinogen,Urine <2.0 mg/dL (<2.0); WBC,Urine 12 /hpf (0-5)
--- NOTE | 2021-04-25 07:55 | CT ---
EXAMINATION TYPE: CT abdomen pelvis w con DATE OF EXAM: 04/25/2021 COMPARISON: 12/27/2018 HISTORY: 36-year-old female with abdominal pain. Pelvic pain since her on 01/31/2021. More in tense this morning. TECHNIQUE: Contiguous axial scanning of the abdomen and pelvis following administration of 100 ml Iso neo 300 IV contrast. Delayed images through the kidneys and coronal/sagittal reconstructions perform ed. CT DLP: 2363.9 mGycm Automated exposure control for dose reduction was used. FINDINGS: Heart normal size without pericardial effusion. Lung bases clear without pleural effusion. Liver enlarged measuring 21.5 cm versus 21.2 cm, previously. There may be mild fatty infiltration. No focal lesion. Dependent 6 mm gallstone. No abnormal gallbladder distention. Portal venous system is patent. No bili amanda ductal dilatation. Tiny hiatal hernia. Tiny fatty umbilical hernia. Adrenal glands, kidneys, and pancreas within normal limits. Spleen mildly enlarged at 14.9 cm. No dilated small bowel or free air. Scattered nonenlarged mesenteric and retroperitoneal lymph nodes. No mesenteric or retroperitoneal ly mphadenopathy by CT size criteria. Normal appendix. Mild to moderate stool. Focal circumferential edematous wall thickening along the l ower descending colon with moderate surrounding inflammatory fat stranding. Bladder partially distended. Numerous pelvic phleboliths especially on the left. Arcuate configuratio n to the uterus which is anteverted. A couple dominant follicles or functional cysts in the left ovary measuring up to 3.1 cm and 2.3 cm. Right ovary is visualized. Multilevel free fluid likely related to the inflammation in the lower desc ending colon. No pelvic lymphadenopathy seen. section scar is noted. Bones: No osseous destructive process. IMPRESSION: 1. EXAM POSITIVE FOR ACUTE DIVERTICULITIS AT THE LEVEL OF THE LOWER DESCENDING COLON WITH MODERATE MONACO RROUNDING INFLAMMATION. NO ABSCESS OR FREE AIR. MILD PELVIC FREE FLUID COULD BE PHYSIOLOGIC OR COULD BE REACTIVE TO THE ABOVE INFLAMMATION. 2. HEPATOSPLENOMEGALY (LIVER 21.5 CM AND SPLEEN 14.9 CM). SUSPECT MILD FATTY INFILTRATION OF THE LIVE R. 3. 6 MM GALLSTONE. 4. SUSPECT PHYSIOLOGIC CHANGES IN THE LEFT OVARY WITH A COUPLE DOMINANT FOLLICLES OR FUNCTIONAL CYSTS MEASURING 3.1 AND 2.3 CM. 5. SECTION SCAR NOTED.
[2021-04-25 08:34] VITALS: BP 148/90; PULSE 78
== END 2021-04-25 08:34 | disposition home or self-care (01) ==
LOC: EC 04:53
DX: K57.92 Diverticulitis of intestine, part unspecified, without perforation or abscess without bleeding (principal)
CPT/HCPCS: 36415; 80053; 83690; 85025; 81001; 81025; 87086; 74177; 99284; Q9967

== ENCOUNTER → 2021-07-27 | Outpatient (CLI) | payer BC ==
--- NOTE | 2021-07-27 12:42 | XR ---
Lumbar spine HISTORY: Back pain 3 views of the lumbar spine, correlation CT scan 04/25/2021 Lumbar vertebral bodies show preserved height and alignment. Bone mineralization is maintained. There is overlying artifact. Disc spaces are maintained. IMPRESSION: Normal lumbar spine
== END | disposition home or self-care (01) ==
LOC: RADUSMAIN 10:29
PROVIDERS: ATTEND Family Medicine
DX: M54.50 Low back pain, unspecified (principal)
CPT/HCPCS: 72100

== ENCOUNTER → 2022-08-13 | Outpatient (CLI) | payer BC ==
--- NOTE | 2022-08-19 08:33 | MM ---
Reason for Exam: Screening (asymptomatic). Last mammogram was performed 2 year(s) and 4 month(s) ago. Patient History: Menarche at age 14. First Full-Term at age 35. Late child-bearing (after 30). Patient used Hormonal Contraceptives for 1 year. Risk Values: Delmy 5 year model risk: 0.5%. NCI Lifetime model risk: 13.8%. Prior Study Comparison: 04/06/2020 Left Diagnostic Mammogram, [facility]. 04/07/2020 Bilateral Diagnostic Mammogram, [facility]. Tissue Density: The breast tissue is heterogeneously dense. This may lower the sensitivity of mammography. Findings: Analyzed By CAD. There is now biopsy within stable oval circumscribed 1.7 cm mass in the right breast. There is now biopsy clip just posterior to 1.2 cm round mass in the left breast. There is new second biopsy clip in the left breast near stable small round mass in the left breast. There are few scattered tiny benign-appearing round calcifications bilaterally on current study. There is no suspicious new group of microcalcifications or new or enlarging suspicious mass in either breast. Overall Assessment: Benign, BI-RAD 2 Management: Screening Mammogram of both breasts in 1 year. A clinical breast exam by your physician is recommended on an annual basis and results should be correlated with mammographic findings. Electronically signed and approved by: Saúl So M.D.
== END | disposition home or self-care (01) ==
LOC: RADMAMWWP 15:51
PROVIDERS: ATTEND Family Medicine
DX: Z12.31 Encounter for screening mammogram for malignant neoplasm of breast (principal)
CPT/HCPCS: 77063; 77067

== ENCOUNTER 2022-10-23 09:04 | Day surgery (SDC) | payer BC ==
--- NOTE | 2022-10-23 08:56 | P.GSHP ---
History of Present Illness H&P Date: 10/23/22 CHIEF COMPLAINT: GERD and colon screen HISTORY OF PRESENT ILLNESS: The patient is a 37-year-old female who presents with gastroesophageal reflux disease and need for colon screen. Upper and lower endoscopy were offered for further evaluation and management. PAST MEDICAL HISTORY: Please see list. PAST SURGICAL HISTORY: Please see list. MEDICATIONS: Please see list. ALLERGIES: Please see list. SOCIAL HISTORY: No illicit drug use FAMILY HISTORY: No reports of Crohn disease or ulcerative colitis. REVIEW OF ORGAN SYSTEMS: CONSTITUTIONAL: No reports of fevers or chills. GI: Denies any blood in stools or constipation. PHYSICAL EXAM: VITAL SIGNS: Stable GENERAL: Well-developed pleasant in no acute distress. HEENT: No scleral icterus. Extraocular movements grossly intact. Moist buccal mucosa. NECK: Supple without lymphadenopathy. CHEST: Unlabored respirations. Equal bilateral excursions. CARDIOVASCULAR: Regular rate and rhythm. Distal 2+ pulses. ABDOMEN: Soft, nondistended. MUSCULOSKELETAL: No clubbing, cyanosis, or edema. ASSESSMENT: 1. Gastroesophageal reflux disease 2. Colon screen. PLAN: 1. Recommend proceeding with an upper and lower endoscopy Past Medical History Past Medical History: Sleep Apnea/CPAP/BIPAP Additional Past Medical History / Comment(s): pcos, kidney stones, miscarriage 2013, 2020, 2021, diverticulitis, hx of sleep apnea had surgery no issues. seasonal allergies History of Any Multi-Drug Resistant Organisms: None Reported Past Surgical History: Section, Tonsillectomy, Tubal Ligation Additional Past Surgical History / Comment(s): palate and uvula removed for sleep apnea.. Past Anesthesia/Blood Transfusion Reactions: No Reported Reaction Smoking Status: Never smoker - Past Family History Mother Family Medical History: Cancer Additional Family Medical History / Comment(s): bile duct cancer Father Family Medical History: Cancer Additional Family Medical History / Comment(s): skin,colon, prostate cancer. Medications and Allergies Home Medications Medication Instructions Recorded Confirmed Type Aspirin/Acetaminophen/Caffeine 2 each PO DIRECTED PRN 10/21/22 10/21/22 History [Excedrin Migraine Caplet] Sertraline [Zoloft] 50 mg PO HS 10/21/22 10/21/22 History Unk Adipex 30 mg PO DAILY 10/21/22 10/21/22 History Unk Allergy Med 1 tab PO HS 10/21/22 10/21/22 History Unk Allergy Nose [place] 1 spray NASAL HS 10/21/22 10/21/22 History Allergies Allergy/AdvReac Type Severity Reaction Status Date / Time sulfamethoxazole Allergy Itching Verified 10/21/22 11:26 [From Bactrim] trimethoprim [From Bactrim] Allergy Itching Verified 10/21/22 11:26 ciprofloxacin [From Cipro] AdvReac Rapid Verified 10/21/22 11:26 Heart Rate
[~2022-10-23 09:04] MED LIST: LACTATED RINGERS 1,000 ML IV SCH
[2022-10-23 09:51] VITALS: TEMP 97.4
[2022-10-23] MEDS ORDERED: LIDOCAINE 1% (10MG/ML) FOR IV START INTRADERMA ONE (09:51)
[2022-10-23] MEDS ORDERED: PROPOFOL 10 MG/ML 20 ML VIAL IV ONE (10:04)
[2022-10-23 10:52] VITALS: BP 142/92; PULSE 62; RESP 16
--- NOTE | 2022-10-23 10:55 | P.PCN ---
Date of Procedure: 10/23/22 Description of Procedure: PREOPERATIVE DIAGNOSIS: Gastroesophageal reflux disease. Epigastric abdominal pain POSTOPERATIVE DIAGNOSIS: Gastroesophageal reflux disease with erosive esophagitis Morbid obesity. Gastritis. Gastric ulcer with recent bleed OPERATION: Esophagogastroduodenoscopy with biopsies along antrum and duodenum SURGEON: Evelyn Masterson MD ANESTHESIA: MAC. INDICATIONS: The patient is a 37-year-old female who presents with reflux disease. Benefits and risks of the procedure were described. Informed consent was obtained. DESCRIPTION: The patient was brought into the endoscopy suite and laid in the left lateral decubitus position. An Olympus gastroscope was passed along the posterior oropharynx down to the distal esophagus where the squamocolumnar junction was encountered at 40 cm from the incisors. The stomach was entered and no bile reflux was found. Additional findings are listed below. Biopsies with cold forceps were obtained of the antrum. The first through third portion of the duodenum was examined. Retroflexion of the scope confirmed Hill grade 3 lower esophageal valve. The squamocolumnar junction demonstrated LA grade B erosive esophagitis. The stomach was desufflated. The patient tolerated the procedure well. FINDINGS: Squamocolumnar junction 38 cm from the incisors. Diaphragmatic hiatus at 38 cm. Hill grade 2 lower esophageal valve. LA grade B erosive esophagitis. Biopsies obtained of duodenum Gastric ulcers with recent bleed, 4 mm 3 at antrum with biopsies obtained Chronic gastritis with recent bleed RECOMMENDATIONS: Omeprazole 40 mg daily 2 weeks
--- NOTE | 2022-10-23 10:59 | P.PCN ---
Date of Procedure: 10/23/22 Description of Procedure: PREOPERATIVE DIAGNOSIS: Colonoscopy screening, High risk Family history colon cancer, first-degree relative, age 40 POSTOPERATIVE DIAGNOSIS: Diverticulosis, sigmoid OPERATION: Colonoscopy to the cecum, ileocecal valve and appendiceal orifice. SURGEON: Evelyn Masterson MD. ANESTHESIA: MAC. INDICATIONS: The patient is a 37-year-old female who presents for colonoscopy screening. She has first degree relative diagnosed with colon cancer age 40. Benefits and risks were described and informed consent was obtained. DESCRIPTION OF PROCEDURE: The patient had undergone Sutab prep. The patient had been brought into the operating room and laid in the left lateral decubitus position. After adequate intravenous sedation, the rectum was examined with 2% lidocaine jelly. No external hemorrhoids were encountered. The rectal tone was within normal limits. No lesions were palpated in the rectal vault. An Olympus colonoscope was advanced until the cecum, ileocecal valve and appendiceal orifice were clearly viewed. The prep was fair. Scattered diverticulosis sigmoidwas encountered. No colonic polyps were found. No evidence of focal colitis was found. Retroflexion of the scope demonstrated grade 1 internal hemorrhoids without active bleeding or inflammation. The colon was desufflated. The patient had tolerated the procedure well. Withdrawal time was over 6 minutes. FINDINGS: Aronchick preparation quality scale 3 (1-5) Internal hemorrhoids, grade 1 No external prolapsed hemorrhoids. No arteriovenous malformations. No adenomatous polyps. No focal colitis. Impacted sigmoid diverticulosis RECOMMENDATIONS: Lower endoscopy in 5 years, 2027 due to high risk history Plan - Discharge Summary Discharge Rx Participant: No New Discharge Prescriptions: New Omeprazole [PriLOSEC] 40 mg PO DAILY #14 cap Continue Unk Allergy Med 1 tab PO HS Aspirin/Acetaminophen/Caffeine [Excedrin Migraine Caplet] 2 each PO DIRECTED PRN PRN Reason: migraine headache Sertraline [Zoloft] 50 mg PO HS Unk Allergy Nose [place] 1 spray NASAL HS Unk Adipex 30 mg PO DAILY Discharge Medication List Aspirin/Acetaminophen/Caffeine [Excedrin Migraine Caplet] 2 each PO DIRECTED PRN 10/21/22 [History] Sertraline [Zoloft] 50 mg PO HS 10/21/22 [History] Unk Adipex 30 mg PO DAILY 10/21/22 [History] Unk Allergy Med 1 tab PO HS 10/21/22 [History] Unk Allergy Nose [place] 1 spray NASAL HS 10/21/22 [History] Omeprazole [PriLOSEC] 40 mg PO DAILY #14 cap 10/23/22 [Rx] Follow up Appointment(s)/Referral(s): Evelyn Masterson MD [STAFF PHYSICIAN] - As Needed Patient Instructions/Handouts: *[facility] - (Anesthesia) Discharge Instructions Outpatient Surgery, Peptic Ulcer (DC), Diverticulosis (DC), Diverticulosis Diet (GEN), Colonoscopy (DC), Upper Endoscopy (DC) Activity/Diet/Wound Care/Special Instructions: Repeat colonoscopy 5 years, 2027 Discharge Disposition: HOME SELF-CARE
== END 2022-10-23 12:05 | disposition home or self-care (01) ==
LOC: ORWHC2ENDO 09:04
PROVIDERS: ATTEND Surgery Plastic and Reconstructive Surgery
DX: Z12.11 Encounter for screening for malignant neoplasm of colon (principal); K29.50 Unspecified chronic gastritis without bleeding; K21.00 Gastro-esophageal reflux disease with esophagitis, without bleeding; E66.01 Morbid (severe) obesity due to excess calories; K25.4 Chronic or unspecified gastric ulcer with hemorrhage; G47.33 Obstructive sleep apnea (adult) (pediatric); Z99.89 Dependence on other enabling machines and devices; Z87.442 Personal history of urinary calculi; Z98.891 History of uterine scar from previous surgery; Z90.89 Acquired absence of other organs; Z98.51 Tubal ligation status; Z80.0 Family history of malignant neoplasm of digestive organs; Z79.82 Long term (current) use of aspirin; Z88.2 Allergy status to sulfonamides; Z88.1 Allergy status to other antibiotic agents; Z68.41 Body mass index [BMI] 40.0-44.9, adult
CPT/HCPCS: 81025; 88305; 45378; 43239; J2704

== ENCOUNTER 2022-11-08 06:13 | Day surgery (SDC) | payer BC ==
--- NOTE | 2022-11-08 02:30 | P.GSHP ---
History of Present Illness H&P Date: 11/08/22 CHIEF COMPLAINT: Cholecystitis HISTORY OF PRESENT ILLNESS: The patient is a 37-year-old female who presents with history of epigastric including right upper quadrant abdominal pain. She underwent diagnostic studies for her gallbladder. Separately her clinical picture was consistent with cholecystitis. Now she presents for surgical intervention. PAST MEDICAL HISTORY: Please see list PAST SURGICAL HISTORY: Please see list MEDICATIONS: Please see list ALLERGIES: Please see list SOCIAL HISTORY: Please see list FAMILY HISTORY: Please see list REVIEW OF ORGAN SYSTEMS: CONSTITUTIONAL: No reports of fevers or chills. HEENT: Denies any troubles with the vision or hearing. ENDOCRINE: No reports of hypothyroidism. No diabetes. RESPIRATORY: No recent pneumonias. CARDIOVASCULAR: Denies chest pain or palpitations GI: No blood in stools or constipation. MUSCULOSKELETAL: Has occasional joint pain including back pain. NEURO: No seizure disorders or headaches. No recent stroke. PSYCH: No depression or suicidal ideation. GENITOURINARY: No active blood in urine. No urinary hesitancy. HEMATOLOGIC: No personal or family history of DVTs or pulmonary emboli. SKIN: No skin cancer. PHYSICAL EXAM: VITAL SIGNS: Afebrile vital signs stable GENERAL: Well-developed pleasant in no acute distress. HEENT: No scleral icterus. Extraocular movements grossly intact. Moist buccal mucosa. NECK: Supple without lymphadenopathy. CHEST: Unlabored respirations. Equal bilateral excursions. CARDIOVASCULAR: Regular rate regular rhythm rhythm. Distal 2+ pulses. ABDOMEN: Soft, nondistended. Tender along the epigastrium and right upper quadrant. MUSCULOSKELETAL: No clubbing, cyanosis, or edema. NEURO: Cranial nerves II to XII within normal limits. No focal or lateralizing signs. PSYCH: Alert and oriented to person, place and time. SKIN: Well-perfused good skin turgor. ASSESSMENT: 1. Epigastric and right upper quadrant abdominal pain 2. Chronic cholecystitis 3. Symptomatic gallstones. PLAN: 1. Will need a robotic cholecystectomy possible open. Benefits and risks were described. 2. Heparin for DVT prophylaxis 5000 units. 3. Antibiotic prophylaxis. 4. CBC and CMP on day of procedure 5. Non-narcotic pre and post op pain management reviewed. 6. Indocyanine green for biliary imaging. Past Medical History Past Medical History: Sleep Apnea/CPAP/BIPAP Additional Past Medical History / Comment(s): pcos, kidney stones, miscarriage 2013, 2020, 2021, intermittent r sided pain, from gall stones. new diagnosis. of bleeding ulcer from colonoscopy History of Any Multi-Drug Resistant Organisms: None Reported Past Surgical History: Tonsillectomy Additional Past Surgical History / Comment(s): colonoscopy Past Anesthesia/Blood Transfusion Reactions: No Reported Reaction Smoking Status: Never smoker - Past Family History Mother Family Medical History: Cancer Additional Family Medical History / Comment(s): bile duct cancer Father Family Medical History: Cancer Additional Family Medical History / Comment(s): skin,colon, prostate cancer. Medications and Allergies Home Medications Medication Instructions Recorded Confirmed Type Sertraline [Zoloft] 50 mg PO HS 10/21/22 11/05/22 History Unk Allergy Med 1 tab PO 10/21/22 11/05/22 History Unk Allergy Nose [place] 1 spray NASAL HS 10/21/22 11/05/22 History Omeprazole [PriLOSEC] 40 mg PO DAILY #14 cap 10/23/22 11/05/22 Rx Allergies Allergy/AdvReac Type Severity Reaction Status Date / Time sulfamethoxazole Allergy Itching Verified 11/05/22 11:42 [From Bactrim] trimethoprim [From Bactrim] Allergy Itching Verified 11/05/22 11:42 ciprofloxacin [From Cipro] AdvReac Rapid Verified 11/05/22 11:42 Heart Rate
[~2022-11-08 06:13] MED LIST changes: +ACETAMINOPHEN TAB 500 MG TAB PO PRN; +DEXAMETHASONE SOD PHOSPHATE 4 MG/ML 1 ML VIAL IV ONE; +FAMOTIDINE 20 MG TAB PO STA; +HEPARIN SODIUM,PORCINE/PF 5,000 UNIT/0.5 ML SYRINGE SQ PRN; +INDOCYANINE GREEN 25 MG VIAL IV STA; +LIDOCAINE 1% (10MG/ML) FOR IV START INTRADERMA PRN; +MIDAZOLAM 2 MG/2 ML VIAL IV PRN; +ONDANSETRON 4 MG/2 ML VIAL IVP ONE; +ONDANSETRON 4 MG/2 ML VIAL IVP PRN; +SCOPOLAMINE 1 MG/72 HR PATCH TRANSDERM STA
[2022-11-08 06:58] LABS: Basophils % (A) 0 %; Eosinophils # (A) 0.2 k/uL (0-0.7); Eosinophils % (A) 2 %; HCT 40.1 % (34.0-46.0); HGB 13.5 gm/dL (11.4-16.0); Lymphocytes # (A) 2.7 k/uL (1.0-4.8); Lymphocytes % (A) 30 %; MCH 25.7 pg (25.0-35.0); MCHC 33.6 g/dL (31.0-37.0); MCV 76.5 fL (80.0-100.0); Mean Platelet Volume 7.3; Microcytosis Slight; Monocytes # (A) 0.5 k/uL (0-1.0); Monocytes % (A) 5 %; Neutrophils # (A) 5.6 k/uL (1.3-7.7); Neutrophils % (A) 62 %; Platelet Count 313 k/uL (150-450); RBC 5.24 m/uL (3.80-5.40); RDW 14.7 % (11.5-15.5); WBC 9.1 k/uL (3.8-10.6)
[2022-11-08] MEDS ORDERED: HYDROmorphone 0.5 MG/0.5 ML SYRINGE IVP PRN (07:00)
[2022-11-08 07:06] LABS: ALT 21 U/L (4-34); AST 21 U/L (14-36); African American GFR (CKD) >90 (>60 ml/min/1.73 sqM); Albumin 4.1 g/dL (3.5-5.0); Alkaline Phosphatase 90 U/L (38-126); Anion Gap 10 mmol/L; Blood Urea Nitrogen 14 mg/dL (7-17); Calcium 8.9 mg/dL (8.4-10.2); Carbon Dioxide 24 mmol/L (22-30); Chloride 106 mmol/L (98-107); Glucose 98 mg/dL (74-99); Non-African American GFR(CKD) >90 (>60 ml/min/1.73 sqM); Potassium 4.3 mmol/L (3.5-5.1); Sodium 140 mmol/L (137-145); Total Bilirubin 0.4 mg/dL (0.2-1.3)
[2022-11-08] MEDS ORDERED: ePHEDrine 50 MG/ML 1 ML VIAL ONE (07:38)
[2022-11-08] MEDS ORDERED: fentaNYL (PF) 50 MCG/ML 2 ML AMP ONE (07:38)
[2022-11-08] MEDS ORDERED: NEOSTIGMINE 1 MG/ML 10 ML VIAL ONE (07:38)
[2022-11-08] MEDS ORDERED: HYDROmorphone (PF) 1 MG/ML ONE (07:38)
[2022-11-08] MEDS ORDERED: ROCURONIUM 10 MG/ML (5 ML VIAL) IV ONE (07:38)
[2022-11-08] MEDS ORDERED: GLYCOPYRROLATE 0.2 MG/ML 2 ML VIAL ONE (07:38)
[2022-11-08] MEDS ORDERED: SUCCINYLCHOLINE CHLORIDE 200 MG/10 ML VIAL IV ONE (07:38)
[2022-11-08] MEDS ORDERED: PROPOFOL 10 MG/ML 20 ML VIAL IV ONE (07:38)
[2022-11-08] MEDS ORDERED: MIDAZOLAM 2 MG/2 ML VIAL ONE (07:38)
[2022-11-08] MEDS ORDERED: LIDOCAINE 2% INJ 20 MG/ML (2 ML VIAL) ONE (07:38)
[2022-11-08] MEDS ORDERED: PHENYLEPHRINE-0.9% NACL SYG 1,000 MCG/10 ML SYRINGE ONE (07:38)
[2022-11-08] MEDS ORDERED: BUPIVACAINE (PF) 0.25% 30 ML VIAL SQ ONE (08:02)
[2022-11-08] MEDS ORDERED: LACTATED RINGERS 1,000 ML IV ONE (09:28)
[2022-11-08 09:54] VITALS: TEMP 97.4
--- NOTE | 2022-11-08 10:16 | P.OP ---
Date of Procedure: 11/08/22 Description of Procedure: SURGEON: EVELYN MASTERSON MD PREOPERATIVE DIAGNOSES: 1. Chronic cholecystitis 2. Right upper quadrant abdominal pain 3. Morbid obesity due to excess calories, BMI 41.9 4. Gastroesophageal reflux disease 5. Depressive disorder 6. Family history gallbladder disorder 7. Family history cholangiocarcinoma, mother POSTOPERATIVE DIAGNOSES: 1. Chronic cholecystitis 2. Right upper quadrant abdominal pain 3. Morbid obesity due to excess calories, BMI 41.9 4. Gastroesophageal reflux disease 5. Depressive disorder 6. Family history gallbladder disorder 7. Family history cholangiocarcinoma, mother 8. Peritoneal adhesions, right upper quadrant 9. Pelvic adhesions 10. 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 Robotic-assisted da Guerita Xi laparoscopic cholecystectomy, multiport with FIREFLY 2. Excision of retroperitoneal/common bile duct lymph node ESTIMATED BLOOD LOSS: 10 mL. SPECIMENS REMOVED: Gallbladder, retroperitoneal/common body lymph node sent fresh COMPLICATIONS: None. OPERATIVE FINDINGS: 1. Moderate scarring over entire gallbladder with peritoneal adhesions, pericholecystic with features of chronic cholecystitis 2. Moderate retroperitoneal/common bile duct lymphadenopathy, 3 cm at common bile duct resected and sent fresh, negative for metastatic cholangiocarcinoma per pathologist 3. Pelvic adhesions undisturbed 4. 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 Common bile duct within normal limits 6. Multiple lymph nodes along cystic duct resected with gallbladder 7. Dome down technique performed due to anomaly at cystic triangle INDICATIONS: The patient is a 37-year-old female who presents with chronic cholecystitis, right upper quadrant abdominal pain, family history of cholangiocarcinoma in her mother and gallbladder disease in all immediate family members. Robotic assisted laparoscopic approach was described. Benefits and risks of the procedure including but not limited to bleeding, infection, injury to the biliary tree was described. Informed consent was obtained. DESCRIPTION OF PROCEDURE: Patient was brought to the operating room, placed in supine position. After general induction, the abdomen had been prepped and draped in standard sterile fashion. The robotic da Guerita XI system was primed. After a timeout protocol was performed, the patient had been prepped and draped in standard sterile fashion. The patient was injected with indocyanine green. A 5 mm 0 degrees laparoscopic trocar entry was performed along the left upper quadrant. The abdomen insufflated to 15 mmHg pressure which was tolerated well. Diagnostic laparoscopy demonstrated no injury to bowel viscera or mesentery. The liver surface was unremarkable. Next, two 8 mm robotic ports were placed along the right upper abdomen. The camera 8-mm port was maintained along the epigastrium. Another 8 mm port was placed along the left upper abdominal wall after exchanging the 5 mm port. Please note that the ports were placed at least 10 to 15 cm away from the target anatomy of the gallbladder. The robot was docked along the left lateral abdomen. The patient was repositioned in reverse Trendelenburg position. Using a grasper for arm 3, a grasper for arm 4, including hook cautery for arm 1, the robotic system was docked and primed as described. Instruments were interchanged by the anesthesiologists' assistant including hook cautery, Bovie cautery and clip appliers. I had sat at the console. The gallbladder was scarred with peritoneal adhesions. Lysis of adhesions was performed to free the gallbladder from the surrounding tissues. Anomaly was identified including the right hepatic artery coursing anterior to the common bile duct. Multiple adenopathy along the hepatic fossa was found including retroperitoneal 3 cm enlarged lymph nodes to the common bile duct. Multiple cystic lymph nodes also identified at the cystic duct. The gallbladder was also folded due to adhesions adding complexity to the case. Careful dissection was performed with stone down technique including releasing all adhesions prior to final dissection of the common bile duct. Next attention was brought to the infundibulum and cystic structures. The infundibulum and cystic duct were dissected free from surrounding tissues. The cystic duct was isolated. FIREFLY was used to identify the cystic artery and cystic structures. A critical view of safety was obtained. Large PLASTIC clips were used throughout the entire case. Using a clip welfare director, 2 clips were placed at the junction of the infundibulum and cystic duct. The cystic duct was divided between clips. Next, the cystic artery was similarly clipped and cauterized. Electro-Bovie cautery was used to remove the gallbladder from the hepatic fossa. Hemostasis was checked and found to be adequate. A large 3 cm common bile duct retroperitoneal lymph node was identified and carefully dissected free and sent fresh due to family history of cholangiocarcinoma. The robot was undocked. I re-scrubbed into the case. Using a 10 mm Endo Catch bag via the left upper quadrant incision, the specimen was removed from the abdominal cavity. All pneumoperitoneum instruments were evacuated from the abdominal cavity. The incisions were reapproximated using 4-0 Monocryl in an interrupted subcuticular fashion. Fascial defects were less than 8 mm in size. Please note along the trocar sites, local anesthetic was placed as a field block prior to insertion of all instruments. Liquid glue was applied to the skin. At the end of the procedure needle, sponge, and instrument count had been verified correct by the operating room surgical technician. The patient was transferred to postanesthesia care unit in stable condition. Intraoperative films were shared with the patient's family. Preliminary results demonstrated no metastatic cholangiocarcinoma from lymph node. Plan - Discharge Summary Discharge Rx Participant: No New Discharge Prescriptions: New Ibuprofen [Motrin] 600 mg PO Q8HR PRN #30 tab PRN Reason: Pain Acetaminophen Tab [Tylenol Tab] 1,000 mg PO Q6HR PRN #30 tablet PRN Reason: Pain Continue Omeprazole [PriLOSEC] 40 mg PO DAILY #14 cap Unk Allergy Med 1 tab PO HS Sertraline [Zoloft] 50 mg PO HS Unk Allergy Nose [place] 1 spray NASAL HS Discharge Medication List Sertraline [Zoloft] 50 mg PO HS 10/21/22 [History] Unk Allergy Med 1 tab PO HS 10/21/22 [History] Unk Allergy Nose [place] 1 spray NASAL HS 10/21/22 [History] Omeprazole [PriLOSEC] 40 mg PO DAILY #14 cap 10/23/22 [Rx] Acetaminophen Tab [Tylenol Tab] 1,000 mg PO Q6HR PRN #30 tablet 11/08/22 [Rx] Ibuprofen [Motrin] 600 mg PO Q8HR PRN #30 tab 11/08/22 [Rx] Follow up Appointment(s)/Referral(s): Evelyn Masterson MD [STAFF PHYSICIAN] - 11/12/22 Patient Instructions/Handouts: *[facility] - Laparoscopic Cholecystectomy Discharge Instructions, *[facility] - (Anesthesia) Discharge Instructions Outpatient Surgery, *[facility] - Managing Your Pain After Surgery Without Opioids Activity/Diet/Wound Care/Special Instructions: [facility] - DR WILL CALL YOU BETWEEN 8 am to 6 pm Recommend low-fat diet for the next 2 days. No lifting over 10 pounds in 2 weeks until November 22. May shower. No bath tub soaks for two weeks until November 22 Diet as tolerated. Use Tylenol, simethicone and ibuprofen or Aleve scheduled for the next 24-48 hours for best pain relief. Use ice along incisions for today to prevent swelling. Discharge Disposition: HOME SELF-CARE
[2022-11-08 10:54] VITALS: RESP 20
[2022-11-08 10:56] VITALS: BP 105/63; PULSE 63
== END 2022-11-08 11:13 | disposition home or self-care (01) ==
LOC: OR 06:13
PROVIDERS: ATTEND Surgery Plastic and Reconstructive Surgery
DX: K80.10 Calculus of gallbladder with chronic cholecystitis without obstruction (principal); K21.9 Gastro-esophageal reflux disease without esophagitis; F32.A Depression, unspecified; K66.0 Peritoneal adhesions (postprocedural) (postinfection); E66.01 Morbid (severe) obesity due to excess calories; Z80.0 Family history of malignant neoplasm of digestive organs; Z68.41 Body mass index [BMI] 40.0-44.9, adult
CPT/HCPCS: 38570; 38900; 47562; S2900; 80053; 85025; 88184; 88185; 88304; 88305; 88331; 88341; 88342

== ENCOUNTER 2023-10-09 07:46 | Day surgery (SDC) | payer BC ==
[2023-10-06 09:48] VITALS: BMI 38.2
[2023-10-09] MEDS: LACTATED RINGERS 1,000 ML IV SCH (08:17)
[2023-10-09 08:19] VITALS: RESP 16; TEMP 97.4
[2023-10-09] MEDS ORDERED: PROPOFOL 10 MG/ML 20 ML VIAL IV ONE (08:25)
--- NOTE | 2023-10-09 08:39 | P.GSHP ---
History of Present Illness H&P Date: 10/09/23 CHIEF COMPLAINT: GERD HISTORY OF PRESENT ILLNESS: The patient is a 38-year-old female who presents reports gastroesophageal reflux disease. Upper endoscopy was offered for further evaluation and management. PAST MEDICAL HISTORY: Please see list. PAST SURGICAL HISTORY: Please see list. MEDICATIONS: Please see list. ALLERGIES: Please see list. SOCIAL HISTORY: No illicit drug use FAMILY HISTORY: No reports of Crohn disease or ulcerative colitis. REVIEW OF ORGAN SYSTEMS: CONSTITUTIONAL: No reports of fevers or chills. GI: Denies any blood in stools or constipation. PHYSICAL EXAM: VITAL SIGNS: Stable GENERAL: Well-developed and pleasant in no acute distress. HEENT: No scleral icterus. Extraocular movements grossly intact. Moist buccal mucosa. NECK: Supple without lymphadenopathy. CHEST: Unlabored respirations. Equal bilateral excursions. CARDIOVASCULAR: Regular rate and rhythm. Distal 2+ pulses. ABDOMEN: Soft, nondistended. MUSCULOSKELETAL: No clubbing, cyanosis, or edema. ASSESSMENT: 1. Gastroesophageal reflux disease PLAN: 1. Recommend proceeding with an upper endoscopy Past Medical History Past Medical History: Sleep Apnea/CPAP/BIPAP Additional Past Medical History / Comment(s): pcos, kidney stones, miscarriage 2013, 2020, 2021, cpap History of Any Multi-Drug Resistant Organisms: None Reported Past Surgical History: Adenoidectomy, Section, Cholecystectomy, Tonsillectomy, Tubal Ligation Additional Past Surgical History / Comment(s): colonoscopy, egd, uvula and soft palate removed Past Anesthesia/Blood Transfusion Reactions: No Reported Reaction Additional Past Anesthesia/Blood Transfusion Reaction / Comment(s): no blood transfusion Smoking Status: Never smoker - Past Family History Mother Family Medical History: Cancer Additional Family Medical History / Comment(s): bile duct cancer Father Family Medical History: Cancer Additional Family Medical History / Comment(s): skin,colon, prostate cancer. Medications and Allergies Home Medications Medication Instructions Recorded Confirmed Type Sertraline [Zoloft] 100 mg PO HS 10/21/22 10/09/23 History Allergies Allergy/AdvReac Type Severity Reaction Status Date / Time sulfamethoxazole Allergy Itching Verified 10/09/23 08:02 [From Bactrim] trimethoprim [From Bactrim] Allergy Itching Verified 10/09/23 08:02 ciprofloxacin [From Cipro] AdvReac Rapid Verified 10/09/23 08:02 Heart Rate Surgical - Exam Vital Signs Temp Pulse Resp BP Pulse Ox 97.4 F L 69 16 131/85 96 10/09/23 08:05 10/09/23 08:05 10/09/23 08:05 10/09/23 08:05 10/09/23 08:05
--- NOTE | 2023-10-09 09:03 | P.PCN ---
Date of Procedure: 10/09/23 Description of Procedure: PREOPERATIVE DIAGNOSIS: Gastroesophageal reflux disease. Morbid obesity. Epigastric abdominal pain POSTOPERATIVE DIAGNOSIS: Gastroesophageal reflux disease with erosive esophagitis Morbid obesity. Gastritis. Diaphragmatic hiatal hernia OPERATION: Esophagogastroduodenoscopy with biopsies along esophagus, antrum and duodenum SURGEON: Evelyn Masterson MD ANESTHESIA: MAC. INDICATIONS: The patient is a 38-year-old female who presents with reflux disease. Benefits and risks of the procedure were described. Informed consent was obtained. DESCRIPTION: The patient was brought into the endoscopy suite and laid in the left lateral decubitus position. An Olympus gastroscope was passed along the posterior oropharynx down to the distal esophagus where the squamocolumnar junction was encountered at 39 cm from the incisors. The stomach was entered and no bile reflux was found. Additional findings are listed below. Biopsies with cold forceps were obtained of the antrum. The first through third portion of the duodenum was examined. Retroflexion of the scope confirmed Hill grade 2 lower esophageal valve. The squamocolumnar junction demonstrated LA grade B erosive esophagitis. The stomach was desufflated. The patient tolerated the procedure well. FINDINGS: Squamocolumnar junction 39 cm from the incisors. Diaphragmatic hiatus at 40 cm. Hiatal hernia, 1 cm Hill grade 2 lower esophageal valve. LA grade B erosive esophagitis. Biopsies obtained Biopsies obtained of the duodenum. Chronic gastritis with biopsies obtained. RECOMMENDATIONS: Upper endoscopy as needed. Plan - Discharge Summary Discharge Rx Participant: No New Discharge Prescriptions: New Omeprazole [PriLOSEC] 40 mg PO DAILY #14 cap Continue Sertraline [Zoloft] 100 mg PO HS Discharge Medication List Sertraline [Zoloft] 100 mg PO HS 10/21/22 [History] Omeprazole [PriLOSEC] 40 mg PO DAILY #14 cap 10/09/23 [Rx] Follow up Appointment(s)/Referral(s): Evelyn Masterson MD [STAFF PHYSICIAN] - 10/14/23 6:00 pm (TELEHEALTH) Patient Instructions/Handouts: Hiatal Hernia (DC), Gastritis (DC) Discharge Disposition: HOME SELF-CARE
[2023-10-09 09:53] VITALS: BP 114/74; PULSE 74
== END 2023-10-09 10:05 | disposition home or self-care (01) ==
LOC: ORWHC2ENDO 07:46
PROVIDERS: ATTEND Surgery Plastic and Reconstructive Surgery
DX: K21.00 Gastro-esophageal reflux disease with esophagitis, without bleeding (principal); K29.50 Unspecified chronic gastritis without bleeding; K44.9 Diaphragmatic hernia without obstruction or gangrene; E66.09 Other obesity due to excess calories; G47.33 Obstructive sleep apnea (adult) (pediatric); Z90.49 Acquired absence of other specified parts of digestive tract; Z98.891 History of uterine scar from previous surgery; Z90.89 Acquired absence of other organs; Z98.51 Tubal ligation status; Z80.0 Family history of malignant neoplasm of digestive organs; Z88.2 Allergy status to sulfonamides; Z88.1 Allergy status to other antibiotic agents; Z68.38 Body mass index [BMI] 38.0-38.9, adult; Z79.51 Long term (current) use of inhaled steroids; Z79.899 Other long term (current) drug therapy
CPT/HCPCS: 81025; 88305; 43239; J2704

== ENCOUNTER → 2023-10-24 | Outpatient (CLI) | payer BC ==
--- NOTE | 2023-10-24 10:12 | MM ---
Reason for Exam: Screening (asymptomatic). Last mammogram was performed 1 year(s) and 2 month(s) ago. Patient History: Menarche at age 14. First Full-Term at age 35. Late child-bearing (after 30). Premenopausal. Patient used Hormonal Contraceptives for 1 year. Last menstrual period: 10/03/2023 Risk Values: Delmy 5 year model risk: 0.5%. NCI Lifetime model risk: 13.8%. Prior Study Comparison: 04/06/2020 Left Diagnostic Mammogram, [facility]. 04/07/2020 Bilateral Diagnostic Mammogram, [facility]. 08/13/2022 Bilateral MG 3D screening mammo w/cad, [facility]. Tissue Density: There are scattered areas of fibroglandular density. Findings: Analyzed By CAD. The pattern is symmetrical. No significant interval change is evident. Chronic nodularity is present bilaterally. Core markers are adjacent to these larger nodular densities. No significant interval changes are evident. No suspicious groups of microcalcifications, spiculated or lobular masses, architectural distortion or other secondary signs of malignancy are mammographically apparent. Overall Assessment: Benign, BI-RAD 2 Management: Screening Mammogram of both breasts in 1 year. A negative mammogram report should not preclude additional follow up of suspicious palpable abnormalities. Patient should continue monthly self breast exam. A clinical breast exam by your physician is recommended on an annual basis and results should be correlated with mammographic findings. Note on Delmy scores and lifetime risk: 1. A Delmy score greater than 3% is considered moderate risk. If this is the case, consider specialist referral to assess eligibility for a risk reducing agent. 2. If overall lifetime risk for the development of breast cancer is 20% or higher, the patient may qualify for future screening with alternating mammogram and breast MRI. Electronically signed and approved by: Akbar Zhu D.O. Radiologis
== END | disposition home or self-care (01) ==
LOC: RADMAMWWP 07:09
PROVIDERS: ATTEND Obstetrics & Gynecology
DX: Z12.31 Encounter for screening mammogram for malignant neoplasm of breast (principal)
CPT/HCPCS: 77063; 77067

== ENCOUNTER 2024-05-08 11:04 | Emergency (ER) | payer BC ==
--- NOTE | 2024-05-08 11:54 | ED ---
Nausea/Vomiting/Diarrhea HPI - General Chief complaint: Nausea/Vomiting/Diarrhea Stated complaint: Food poisoning Time Seen by Provider: 05/08/24 11:53 Source: patient, RN notes reviewed Mode of arrival: ambulatory Limitations: no limitations - History of Present Illness Initial comments: 39-year-old female presenting to the ER for evaluation of nausea, vomiting and diarrhea. Patient states last night for dinner she ate [place] [employer] and around 3 AM this morning she started to have persistent diarrhea, nausea and vomiting. She reports generalized abdominal pain and myalgias from vomiting. She denies any hematic emesis, melena or hematochezia. Patient reports her sister has similar symptoms and is concerned of food poisoning. She has not ta cristobal anything for her symptoms at this time. Patient does report she is currently taking Flagyl for diverticulitis. Denies fevers. No other complaints. - Related Data Home Medications Medication Instructions Recorded Confirmed Sertraline [Zoloft] 100 mg PO HS 10/21/10/09/23 Previous Rx's Medication Instructions Recorded Omeprazole [PriLOSEC] 40 mg PO DAILY #14 cap 10/09/23 Nitrofurantoin Monohyd/M-Cryst 100 mg PO Q12HR #14 cap 05/08/24 [Macrobid] Ondansetron Odt [Zofran Odt] 4 mg PO Q8HR PRN #10 tab 05/08/24 Allergies Allergy/AdvReac Type Severity Reaction Status Date / Time sulfamethoxazole Allergy Itching Verified 05/08/24 11:22 [From Bactrim] trimethoprim [From Bactrim] Allergy Itching Verified 05/08/24 11:22 ciprofloxacin [From Cipro] AdvReac Rapid Verified 05/08/24 11:22 Heart Rate Review of Systems ROS Statement: Those systems with pertinent positive or pertinent negative responses have been documented in the HPI. ROS Other: All systems not noted in ROS Statement are negative. Past Medical History Past Medical History: Sleep Apnea/CPAP/BIPAP Additional Past Medical History / Comment(s): pcos, kidney stones, miscarriage 2013, 2020, 2021, cpap, diverticulitis History of Any Multi-Drug Resistant Organisms: None Reported Past Surgical History: Adenoidectomy, Section, Cholecystectomy, Tonsillectomy, Tubal Ligation Additional Past Surgical History / Comment(s): colonoscopy, egd, uvula and soft palate removed Past Anesthesia/Blood Transfusion Reactions: No Reported Reaction Additional Past Anesthesia/Blood Transfusion Reaction / Comment(s): no blood transfusion Past Psychological History: Anxiety, Depression Smoking Status: Never smoker Past Alcohol Use History: None Reported Past Drug Use History: None Reported - Past Family History Mother Family Medical History: Cancer Additional Family Medical History / Comment(s): bile duct cancer Father Family Medical History: Cancer Additional Family Medical History / Comment(s): skin,colon, prostate cancer. General Exam Limitations: no limitations General appearance: alert, in no apparent distress Respiratory exam: Present: normal lung sounds bilaterally. Absent: respiratory distress, wheezes, rales, rhonchi, stridor Cardiovascular Exam: Present: regular rate, normal rhythm, normal heart sounds. Absent: systolic murmur, diastolic murmur, rubs, gallop, clicks GI/Abdominal exam: Present: soft, tenderness (generalized), normal bowel sounds. Absent: distended, guarding, rebound, rigid Neurological exam: Present: alert, oriented X3, CN II-XII intact Skin exam: Present: warm, dry, intact, normal color. Absent: rash Course Vital Signs 05/08/24 05/08/24 05/08/24 11:22 11:44 13:15 Temperature 98.7 F 99.4 F 100.7 F H Pulse Rate 132 H 130 H 114 H Respiratory 18 18 20 Rate Blood Pressure 124/83 192/111 126/78 O2 Sat by Pulse 97 96 98 Oximetry 05/08/24 14:17 Temperature 99.1 F Pulse Rate 109 H Respiratory 20 Rate Blood Pressure 147/87 O2 Sat by Pulse 96 Oximetry Medical Decision Making - Medical Decision Making Was pt. sent in by a medical professional or institution (, PA, TEST ADMINISTRATOR, urgent care, hospital, or alf...) When possible be specific @ -No Did you speak to anyone other than the patient for history (EMS, parent, family, police, friend...)? What history was obtained from this source @ -No Did you review nursing and triage notes (agree or disagree)? Why? @ -I reviewed and agree with nursing and triage notes Were old charts reviewed (outside hosp., previous admission, EMS record, old EKG, old radiological studies, urgent care reports/EKG's, alf records)? Report findings @ -No old charts were reviewed Differential Diagnosis (chest pain, altered mental status, abdominal pain women, abdominal pain men, vaginal bleeding, weakness, fever, dyspnea, syncope, headache, dizziness, GI bleed, back pain, seizure, CVA, palpatations, mental health, musculoskeletal)? @ -Gastritis, cholecystitis, cannabis hyperemesis syndrome, pancreatitis, gastroenteritis, viral illness, diverticulitis, colitis, Crohn's disease, ulcerative colitis, IBS,... this list is not meant to be all-inclusive EKG interpreted by me (3pts min.). @ -As above X-rays interpreted by me (1pt min.). @ -None done CT interpreted by me (1pt min.). @ -CT abdomen pelvis showing no acute intra-abdominal process. Stable hepatomegaly and splenomegaly. U/S interpreted by me (1pt. min.). @ -None done What testing was considered but not performed or refused? (CT, X-rays, U/S, labs)? Why? @ -None What meds were considered but not given or refused? Why? @ -None Did you discuss the management of the patient with other professionals (professionals i.e. , PA, TEST ADMINISTRATOR, lab, RT, psych nurse, social work faculty member, pile header, teacher, operational intelligence officer, caser in)? Give summary @ -No Was smoking cessation discussed for >3mins.? @ -No Was critical care preformed (if so, how long)? @ -No Were there social determinants of health that impacted care today? How? (Homelessness, low income, unemployed, alcoholism, drug addiction, transportation, low edu. Level, literacy, decrease access to med. care, fdc, rehab)? @ -No Was there de-escalation of care discussed even if they declined (Discuss DNR or withdrawal of care, Hospice)? DNR status @ -No What co-morbidities impacted this encounter? (DM, HTN, Smoking, COPD, CAD, Cancer, CVA, ARF, Chemo, Hep., AIDS, mental health diagnosis, sleep apnea, morbid obesity)? @ -Diverticulitis Was patient admitted / discharged? Hospital course, mention meds given and route, prescriptions, significant lab abnormalities, going to OR and other pertinent info. @ -Discharge. 39-year-old female presenting to the ER for evaluation of nausea vomiting and diarrhea. Patient is tachycardic upon arrival, likely due to anxiety as patient is crying during examination. Vitals otherwise stable. Patient appears uncomfortable with no signs of acute respiratory distress. Generalized abdominal tenderness with normal bowel sounds. No rebound or guarding. Laboratory studies obtained and remarkable for WBC 7.4, lactic 2.5 for which patient received IV fluids. Urinalysis concerning of infection with occasional bacteria. Patient started on Macrobid. hCG negative. Viral swabs negative. Due to patient reporting current treatment of diverticulitis CT Abdo pelvis performed to rule out complications of diverticulitis. CT abdomen pelvis negative. Patient given IV fluids, Tylenol and Toradol in the ER for symptom control with improvement. Upon reevaluation, patient resting comfortably in exam room no signs of acute distress. Patient stable for discharge. Strict return parameters discussed. Patient discharged in stable condition with follow-up to PCP. Patient verbally expressed understanding and agreement with care plan. Case discussed with ED attending, Dr. Sotelo. Undiagnosed new problem with uncertain prognosis? @ -No Drug Therapy requiring intensive monitoring for toxicity (Heparin, Nitro, Insulin, Cardizem)? @ -No Were any procedures done? @ -No Diagnosis/symptom? @ -Gastroenteritis/UTI Acute, or Chronic, or Acute on Chronic? @ -Acute Uncomplicated (without systemic symptoms) or Complicated (systemic symptoms)? @ -Uncomplicated Side effects of treatment? @ -No Exacerbation, Progression, or Severe Exacerbation? @ -No Poses a threat to life or bodily function? How? (Chest pain, [place], [place], pneumonia, PE, COPD, DKA, ARF, appy, cholecystitis, CVA, Diverticulitis, Homicidal, Suicidal, threat to staff... and all critical care pts) @ -No - Lab Data Result diagrams: 05/08/24 12:12 05/08/24 12:12 Lab Results 05/08/24 05/08/24 05/08/24 Range/Units 11:59 11:59 11:59 WBC (3.8-10.6) k/uL RBC (3.80-5.40) m/uL Hgb (11.4-16.0) gm/dL Hct (34.0-46.0) % MCV (80.0-100.0) fL MCH (25.0-35.0) pg MCHC (31.0-37.0) g/dL RDW (11.5-15.5) % Plt Count (150-450) k/uL MPV Neutrophils % % Lymphocytes % % Monocytes % % Eosinophils % % Basophils % % Neutrophils # (1.3-7.7) k/uL Lymphocytes # (1.0-4.8) k/uL Monocytes # (0-1.0) k/uL Eosinophils # (0-0.7) k/uL Basophils # (0-0.2) k/uL Sodium (137-145) mmol/L Potassium (3.5-5.1) mmol/L Chloride (98-107) mmol/L Carbon Dioxide (22-30) mmol/L Anion Gap mmol/L BUN (7-17) mg/dL Creatinine (0.52-1.04) mg/dL Est GFR (CKD-EPI)AfAm (>60 ml/min/1.73 sqM) Est GFR (CKD-EPI)NonAf (>60 ml/min/1.73 sqM) Glucose (74-99) mg/dL Lactic Ac Sepsis Rflx Plasma Lactic Acid Wood (0.7-2.0) mmol/L Calcium (8.4-10.2) mg/dL Total Bilirubin (0.2-1.3) mg/dL AST (14-36) U/L ALT (4-34) U/L Alkaline Phosphatase (38-126) U/L Total Protein (6.3-8.2) g/dL Albumin (3.5-5.0) g/dL Amylase (30-110) U/L Lipase (23-300) U/L Urine Color Yellow Urine Appearance Clear (Clear) Urine pH 5.5 (5.0-8.0) Ur Specific Sabine 1.031 (1.001-1.035) Urine Protein Trace H (Negative) Urine Glucose (UA) Negative (Negative) Urine Ketones Trace H (Negative) Urine Blood Small H (Negative) Urine Nitrite Negative (Negative) Urine Bilirubin Negative (Negative) Urine Urobilinogen <2.0 (<2.0) mg/dL Ur Leukocyte Esterase Trace H (Negative) Urine RBC 2 (0-5) /hpf Urine WBC 3 (0-5) /hpf Ur Squamous Epith Cells 3 (0-4) /hpf Urine Bacteria Occasional H (None) /hpf Urine Mucus Many H (None) /hpf Urine HCG, Qual Not Detected (Not Detectd) Influenza Type A (PCR) Not Detected (Not Detectd) Influenza Type B (PCR) Not Detected (Not Detectd) RSV (PCR) Not Detected (Not Detectd) SARS-CoV-2 (PCR) Not Detected (Not Detectd) 05/08/24 05/08/24 05/08/24 Range/Units 12:12 12:12 12:12 WBC 7.4 (3.8-10.6) k/uL RBC 6.14 H (3.80-5.40) m/uL Hgb 15.3 (11.4-16.0) gm/dL Hct 47.1 H (34.0-46.0) % MCV 76.6 L (80.0-100.0) fL MCH 24.9 L (25.0-35.0) pg MCHC 32.5 (31.0-37.0) g/dL RDW 13.6 (11.5-15.5) % Plt Count 304 (150-450) k/uL MPV 6.6 Neutrophils % 92 % Lymphocytes % 3 % Monocytes % 3 % Eosinophils % 1 % Basophils % 0 % Neutrophils # 6.8 (1.3-7.7) k/uL Lymphocytes # 0.3 L (1.0-4.8) k/uL Monocytes # 0.2 (0-1.0) k/uL Eosinophils # 0.1 (0-0.7) k/uL Basophils # 0.0 (0-0.2) k/uL Sodium 137 (137-145) mmol/L Potassium 3.7 (3.5-5.1) mmol/L Chloride 108 H (98-107) mmol/L Carbon Dioxide 17 L (22-30) mmol/L Anion Gap 12 mmol/L BUN 13 (7-17) mg/dL Creatinine 0.60 (0.52-1.04) mg/dL Est GFR (CKD-EPI)AfAm >90 (>60 ml/min/1.73 sqM) Est GFR (CKD-EPI)NonAf >90 (>60 ml/min/1.73 sqM) Glucose 136 H (74-99) mg/dL Lactic Ac Sepsis Rflx Plasma Lactic Acid Wood 2.5 H* (0.7-2.0) mmol/L Calcium 9.0 (8.4-10.2) mg/dL Total Bilirubin 0.8 (0.2-1.3) mg/dL AST 26 (14-36) U/L ALT 33 (4-34) U/L Alkaline Phosphatase 79 (38-126) U/L Total Protein 7.5 (6.3-8.2) g/dL Albumin 4.6 (3.5-5.0) g/dL Amylase 54 (30-110) U/L Lipase 110 (23-300) U/L Urine Color Urine Appearance (Clear) Urine pH (5.0-8.0) Ur Specific Sabine (1.001-1.035) Urine Protein (Negative) Urine Glucose (UA) (Negative) Urine Ketones (Negative) Urine Blood (Negative) Urine Nitrite (Negative) Urine Bilirubin (Negative) Urine Urobilinogen (<2.0) mg/dL Ur Leukocyte Esterase (Negative) Urine RBC (0-5) /hpf Urine WBC (0-5) /hpf Ur Squamous Epith Cells (0-4) /hpf Urine Bacteria (None) /hpf Urine Mucus (None) /hpf Urine HCG, Qual (Not Detectd) Influenza Type A (PCR) (Not Detectd) Influenza Type B (PCR) (Not Detectd) RSV (PCR) (Not Detectd) SARS-CoV-2 (PCR) (Not Detectd) 05/08/24 Range/Units 12:47 WBC (3.8-10.6) k/uL RBC (3.80-5.40) m/uL Hgb (11.4-16.0) gm/dL Hct (34.0-46.0) % MCV (80.0-100.0) fL MCH (25.0-35.0) pg MCHC (31.0-37.0) g/dL RDW (11.5-15.5) % Plt Count (150-450) k/uL MPV Neutrophils % % Lymphocytes % % Monocytes % % Eosinophils % % Basophils % % Neutrophils # (1.3-7.7) k/uL Lymphocytes # (1.0-4.8) k/uL Monocytes # (0-1.0) k/uL Eosinophils # (0-0.7) k/uL Basophils # (0-0.2) k/uL Sodium (137-145) mmol/L Potassium (3.5-5.1) mmol/L Chloride (98-107) mmol/L Carbon Dioxide (22-30) mmol/L Anion Gap mmol/L BUN (7-17) mg/dL Creatinine (0.52-1.04) mg/dL Est GFR (CKD-EPI)AfAm (>60 ml/min/1.73 sqM) Est GFR (CKD-EPI)NonAf (>60 ml/min/1.73 sqM) Glucose (74-99) mg/dL Lactic Ac Sepsis Rflx Y Plasma Lactic Acid Wood (0.7-2.0) mmol/L Calcium (8.4-10.2) mg/dL Total Bilirubin (0.2-1.3) mg/dL AST (14-36) U/L ALT (4-34) U/L Alkaline Phosphatase (38-126) U/L Total Protein (6.3-8.2) g/dL Albumin (3.5-5.0) g/dL Amylase (30-110) U/L Lipase (23-300) U/L Urine Color Urine Appearance (Clear) Urine pH (5.0-8.0) Ur Specific Sabine (1.001-1.035) Urine Protein (Negative) Urine Glucose (UA) (Negative) Urine Ketones (Negative) Urine Blood (Negative) Urine Nitrite (Negative) Urine Bilirubin (Negative) Urine Urobilinogen (<2.0) mg/dL Ur Leukocyte Esterase (Negative) Urine RBC (0-5) /hpf Urine WBC (0-5) /hpf Ur Squamous Epith Cells (0-4) /hpf Urine Bacteria (None) /hpf Urine Mucus (None) /hpf Urine HCG, Qual (Not Detectd) Influenza Type A (PCR) (Not Detectd) Influenza Type B (PCR) (Not Detectd) RSV (PCR) (Not Detectd) SARS-CoV-2 (PCR) (Not Detectd) - EKG Data -: EKG Interpreted by Me EKG Comments: EKG taken at 13: 04 showing a sinus tachycardia. No ST segment or T wave abnormalities. Ventricular rate 109, DE interval 131, QRS duration 96, QT/QTc 332/396. - Radiology Data Radiology results: report reviewed, image reviewed Disposition Clinical Impression: UTI (urinary tract infection), Gastroenteritis Disposition: HOME SELF-CARE Condition: Stable Instructions (If sedation given, give patient instructions): Acute Nausea and Vomiting (ED), Acute Diarrhea (ED) Additional Instructions: Take Zofran as prescribed for nausea. Complete full course of Macrobid for UTI. Follow-up closely with PCP. Return to the ER for any new or worsening concerns. Prescriptions: Nitrofurantoin Monohyd/M-Cryst [Macrobid] 100 mg PO Q12HR #14 cap Ondansetron Odt [Zofran Odt] 4 mg PO Q8HR PRN #10 tab PRN Reason: Nausea Is patient prescribed a controlled substance at d/c from ED?: No Referrals: Wes Wills MD [Primary Care Provider] - 1-2 days Time of Disposition: 14:07
[2024-05-08 12:18] LABS: Appearance,Urine Clear (Clear); Bacteria,Urine Occasional /hpf; Bilirubin,Urine Negative (Negative); Blood,Urine Small (Negative); Color,Urine Yellow; Glucose,Urine (UA) Negative (Negative); Ketones,Urine Trace (Negative); Leukocyte Esterase,Urine Trace (Negative); Mucus,Urine Many /hpf; Nitrite,Urine Negative (Negative); PH, Urine 5.5 (5.0-8.0); Protein,Urine Trace (Negative); RBC,Urine 2 /hpf (0-5); Specific Gravity,Urine 1.031 (1.001-1.035); Squamous Epithelial Cell,Urine 3 /hpf (0-4); Urobilinogen,Urine <2.0 mg/dL (<2.0); WBC,Urine 3 /hpf (0-5)
[2024-05-08 12:19] LABS: Basophils % (A) 0 %; Eosinophils # (A) 0.1 k/uL (0-0.7); Eosinophils % (A) 1 %; HCT 47.1 % (34.0-46.0); HGB 15.3 gm/dL (11.4-16.0); Lymphocytes # (A) 0.3 k/uL (1.0-4.8); Lymphocytes % (A) 3 %; MCH 24.9 pg (25.0-35.0); MCHC 32.5 g/dL (31.0-37.0); MCV 76.6 fL (80.0-100.0); Mean Platelet Volume 6.6; Monocytes # (A) 0.2 k/uL (0-1.0); Monocytes % (A) 3 %; Neutrophils # (A) 6.8 k/uL (1.3-7.7); Neutrophils % (A) 92 %; Platelet Count 304 k/uL (150-450); RBC 6.14 m/uL (3.80-5.40); RDW 13.6 % (11.5-15.5); WBC 7.4 k/uL (3.8-10.6)
[2024-05-08 12:29] LABS: ALT 33 U/L (4-34); AST 26 U/L (14-36); African American GFR (CKD) >90 (>60 ml/min/1.73 sqM); Albumin 4.6 g/dL (3.5-5.0); Alkaline Phosphatase 79 U/L (38-126); Amylase 54 U/L (30-110); Anion Gap 12 mmol/L; Blood Urea Nitrogen 13 mg/dL (7-17); Carbon Dioxide 17 mmol/L (22-30); Chloride 108 mmol/L (98-107); Glucose 136 mg/dL (74-99); Lipase 110 U/L (23-300); Non-African American GFR(CKD) >90 (>60 ml/min/1.73 sqM); Potassium 3.7 mmol/L (3.5-5.1); Sodium 137 mmol/L (137-145); Total Bilirubin 0.8 mg/dL (0.2-1.3); Total Protein 7.5 g/dL (6.3-8.2)
[2024-05-08] MEDS: ONDANSETRON 4 MG/2 ML VIAL IVP STA (12:29)
[2024-05-08] MEDS: SODIUM CHLORIDE 0.9% 1,000 ML IV STA (12:30)
[2024-05-08 13:17] VITALS: RESP 20
[2024-05-08] MEDS: KETOROLAC 15 MG/ML 1 ML VIAL IVP STA (13:32)
[2024-05-08] MEDS: ACETAMINOPHEN TAB 500 MG TAB PO STA (13:33)
[2024-05-08] MEDS: SODIUM CHLORIDE 0.9% 500 ML 500 ML IV STA (13:33)
--- NOTE | 2024-05-08 13:47 | CT ---
EXAMINATION TYPE: CT abdomen pelvis w con DATE OF EXAM: 05/08/2024 COMPARISON: 04/25/2021 CLINICAL INDICATION: Female, 39 years old with history of LLQ abd pain; PHH, ABD PAIN TECHNIQUE: Performed without Oral Contrast and with IV Contrast, patient injected with 100 mL of Isovue 300. CT DLP: [address] CTDI: mGy Automated exposure control for dose reduction was used. FINDINGS: The lung bases are clear. There is surgical absence of the gallbladder. There is no biliary ductal dilatation. There is persistent hepatomegaly with a 21 cm liver and there is stable mild splenomegaly which is ne henri 15 cm in size. There is no solid renal mass or hydronephrosis and there is homogeneous contrast enhancement of the r enal parenchyma. The caliber the abdominal aorta is normal is no retroperitoneal adenopathy or hemorr luca. The bowel loops are normal in caliber and there is no evidence of dilatation or obstruction. No infla mmatory changes are identified in the bowel wall or mesentery. There is no free intraperitoneal air or fluid. No pelvic mass, free fluid, abscess or adenopathy. The osseous structures and soft tissues are intact. IMPRESSION: Stable hepatomegaly and splenomegaly. No acute changes within the abdomen or pelvis. [facility], , 05/08/2024 1:45 PM
[2024-05-08 14:18] VITALS: BP 147/87; PULSE 109; TEMP 99.1
== END 2024-05-08 14:21 | disposition home or self-care (01) ==
LOC: EC 11:04
DX: N39.0 Urinary tract infection, site not specified (principal); K52.9 Noninfective gastroenteritis and colitis, unspecified; K57.92 Diverticulitis of intestine, part unspecified, without perforation or abscess without bleeding; Z88.1 Allergy status to other antibiotic agents; Z88.2 Allergy status to sulfonamides
CPT/HCPCS: 36415; 93005; 80053; 82150; 83605; 83690; 85025; 81001; 81025; 87636; 74177; 99285; 96374; 96375; 96361 ×2; J2405; J1885; Q9967